=== PATIENT | male | born 1950 | race Caucasian/White ===

== ENCOUNTER 2023-11-19 11:13 | Outpatient (AMB) | payer OTHER, SELFPAY ==
--- NOTE | 2023-11-19 11:17 | MHC.OFFVIS ---
Intake Visit Reasons: BPH Intake Note: New Patient presents for initial visit for weak urinary stream Urology Medications: none Blood Thinner: apixaban PVR: 45ml's Unit Assembler Required: No Accompanied by: Self / Same As Patient Allergies topical antibiotics Allergy (Uncoded 11/19/23 11:58) Rash Medication List - Last Reconciled 11/19/23 by MATTIE Peñaloza allopurinol 300 mg PO DAILY amlodipine-benazepril 5-20 mg 1 cap PO DAILY apixaban (Eliquis) 5 mg PO BID benazepril 20 mg PO DAILY doxazosin 8 mg PO DAILY metformin ER 500 mg PO BID metoprolol succinate ER 25 mg PO DAILY pravastatin 20 mg PO DAILY HPI Comments Details: Melquiades Anand is a very pleasant 73-year-old male patient of Dr. Nelson. He has a past medical history of aortic aneurysm status post repair, hypertension, and diabetes. He presents to the office today as a new patient for weak urinary stream. In discussion with the patient today he reports noting weak urinary stream to be more consistent and persistent at night when he gets up approximately 2 times per night. He otherwise denies urinary urgency, urinary frequency, incontinence, hematuria, dysuria, foul smelling urine, flank pain, fever, and or chills. He reports having had a CT scan 1-2 years ago for follow-up of his abdominal aortic aneurysm that noted enlarged prostate and has been following up with his PCP for his annual PSAs. Discussed at length potential causes for weak urinary stream. Discussed obtaining retroperitoneal ultrasound for further assessment evaluation. In office urinalysis results reviewed with the patient today. PVR 45 mL. He does discuss having trialed Viagra and Cialis in the past for erectile dysfunction. He reports his male partner is approximately 15 years younger than him however he has since stopped taking p.r.n. ED medications as his science liaison suggested. He reports to be active in the gym approximately 3 times per week. He reports when taking Viagra he experienced back pain however he did find Cialis very helpful. He reports to be following up with his science liaison within the next month and will readdress this issue. He otherwise offers no other issues or concerns at this time. [facility] Medical History AAA (abdominal aortic aneurysm) Type 2 diabetes mellitus Hypertension Surgical History (Updated 11/19/23 @ 11:40 by Laura Wright) History of cardiac radiofrequency ablation History of AAA (abdominal aortic aneurysm) repair Review of Systems Const Reports no additional complaints Eyes Reports no additional complaints ENT Reports no additional complaints Card Reports as per HPI Resp Reports no additional complaints GI Reports no additional complaints Reports as per HPI Musc Reports no additional complaints Neuro Reports no additional complaints Psych Reports no additional complaints Endo Reports as per HPI Kt/Lymph Reports no additional complaints Aller/Immun Reports no additional complaints Physical Exam Const General: cooperative, healthy appearing, comfortable, no acute distress, well developed, alert and awake Orientation/consciousness: patient oriented x3 Limitations: no limitations HEENT Head: Yes normal to inspection, Yes normocephalic and Yes atraumatic Ears: hearing grossly normal bilaterally Eyes General: appearance normal, both eyes and all related structures Neck Neck: Yes normal visual inspection and Yes trachea midline Chest Chest palpation & inspection: normal inspection of the chest Resp Effort & Inspection: normal respiratory effort and able to speak in complete sentences Cardio Rate: regular rate GI Inspection: Yes normal to inspection General: Yes no CVA tenderness Back/Spine/Pelvis Back: no CVA tenderness Skin General skin exam: no rashes or lesions noted Neuro General: patient oriented x3 Extrem General: Yes normal to inspection Psych Appearance: grossly normal and well kempt Mental Status: mental status grossly normal Speech and movement: Normal speech and movement present and Clear speech present Affect: normal affect Attitude: cooperative Thought process: Normal thought process present Thought content: Normal thought content present Insight: Fair insight present (Psych) Judgement: Fair judgement present (Psych) Office Procedures Post Void Residual Post Residual Void Post Void Residual (PVR): 45 [id number] Void Residual by ultrasound Results AMB Urinalysis, Automated UA Leukoctes 0 Akhil/uL Last Edit by Laura Wright on 11/19/23 11:42 UA Nitrite Negative Last Edit by Laura Wright on 11/19/23 11:42 UA Urobilinogen 0.2 mg/dL Last Edit by Laura Wright on 11/19/23 11:42 UA Protein 15 mg/dL Last Edit by Laura Wright on 11/19/23 11:42 UA pH 5.5 Last Edit by Laura Wright on 11/19/23 11:42 UA Blood 0 Yadiel/uL Last Edit by Laura Wright on 11/19/23 11:42 UA Specific [place] 1.015 Last Edit by Laura Wright on 11/19/23 11:42 UA Ketone Negative Last Edit by Laura Wright on 11/19/23 11:42 UA Bilirubin 0 mg/dL Last Edit by Laura Wright on 11/19/23 11:42 UA Glucose 0 mg/dL Last Edit by Laura Wright on 11/19/23 11:42 Results Reviewed Results Reviewed: Laboratory Last Values Urine pH (Auto) 5.5 11/19/23 11:41 Specific [place] (Auto) 1.015 11/19/23 11:41 Urine Protein (Auto) 15 mg/dL 11/19/23 11:41 Glucose (UA)(Auto) 0 mg/dL 11/19/23 11:41 Urine Ketones (Auto) Negative 11/19/23 11:41 Urine Blood (Auto) 0 Yadiel/uL 11/19/23 11:41 Urine Nitrite (Auto) Negative 11/19/23 11:41 Urine Bilirubin (Auto) 0 mg/dL 11/19/23 11:41 Urine Urobilinogen (Auto) 0.2 mg/dL 11/19/23 11:41 Leukocyte Esterase (Auto) 0 Akhil/uL 11/19/23 11:41 Assessment & Plan Assessment & Plan (1) Weak urinary stream: Code(s): R39.12 - Poor urinary stream Category: Medical (2) Erectile dysfunction associated with type 2 diabetes mellitus: Code(s): E11.69 - Type 2 diabetes mellitus with other specified complication; N52.1 - Erectile dysfunction due to diseases classified elsewhere Category: Medical Plan In office urinalysis results reviewed with the patient today; as noted above. PVR 45 mL. Discussed at length potential causes for weak urinary stream. Discussed obtaining retroperitoneal ultrasound for further assessment evaluation. Will obtain PSA from PCP as patient reports he has had this completed Discussed Cialis 5 mg daily with p.r.n. dosing versus p.r.n. dosing; patient will follow-up with cardiology and will further assess at next follow-up appointment. Discussed and educated on lifestyle modifications to assist with ED. Follow-up month with imaging to be completed prior and PVR at next office visit; or sooner with any issues, concerns, and or questions. Orders: Orders US retroperitoneal comp Today R39.12 - Poor urinary stream AMB Urinalysis Automated Today Z13.9 - Encounter for screening, unspecified AMB Post Void Residual by ultrasound Today Z13.9 - Encounter for screening, unspecified Patient Instructions: The patient had an opportunity to ask questions regarding the treatment plan. All questions were answered. Physical exam, labs, and imaging were discussed and reviewed in detail. As well as risks, benefits, and discussion of treatment choices. No major barriers to understanding were identified. The patient expressed understanding and agreement with the above treatment plan. The patient was made aware they should contact our office by phone for worsening of their current condition, the appearance of new symptoms, or with any questions or concerns. Compliance is encouraged with any medications and follow up testing that is ordered. It is a privilege to be allowed the opportunity to participate in? your urological care.? Again, if you have any questions or concerns If you have any questions or concerns please do not hesitate to contact me. The office is [phone]. This note is constructed using voice recognition software. While every effort has been made to ensure accuracy slitter processed film errors may have been included. Yours sincerely, MATTIE Peñaloza Coding Level of Care Code New Pt Level 3 (96850) Diagnoses Weak urinary stream R39.12 Erectile dysfunction associated with type 2 diabetes mellitus E11.69; N52.1 CPT Codes Post Residual Void - PVR CPT Code: 91889-Xzai Void Residual by ultrasound ([id number])
== END 2023-11-19 11:59 | disposition home or self-care (01) ==
PROVIDERS: PCP Nurse Practitioner Family; Visit Provider Nurse Practitioner Family
DX: R39.12 Poor urinary stream (principal); E11.69 Type 2 diabetes mellitus with other specified complication; N52.1 Erectile dysfunction due to diseases classified elsewhere
CPT/HCPCS: 99203

== ENCOUNTER → 2023-11-19 11:13 | Outpatient (BNVA) | payer OTHER, SELFPAY | PROVIDERS: PCP Nurse Practitioner Family; Visit Provider Nurse Practitioner Family | DX: R39.12 Poor urinary stream (principal); E11.69 Type 2 diabetes mellitus with other specified complication; N52.1 Erectile dysfunction due to diseases classified elsewhere | CPT/HCPCS: 51798; 81003 ==

== ENCOUNTER 2024-01-07 09:56 | Outpatient (REF) | payer OTHER, SELFPAY ==
--- NOTE | ~2024-01-07 | US_ITS ---
EXAMINATION: US RETROPERITONEAL COMPLETE (RENAL) CLINICAL INFORMATION: Poor urinary stream. COMPARISON: None available. TECHNIQUE: Real-time imaging of the kidneys and bladder. FINDINGS: RIGHT KIDNEY: 12.6 x 7.2 x 7.9 cm (SAG x AP x TRV). The kidney is normal in size, contour, and echogenicity. Renal cortical thickness is normal. No renal calculi or hydronephrosis. 3 benign Bosniak class I renal cysts are noted, the largest measuring 8.1 cm which require no additional imaging or follow-up. No solid renal masses are seen. LEFT KIDNEY: 12.2 x 6.7 x 6.7 cm (SAG x AP x TRV). The kidney is normal in size, contour, and echogenicity. Renal cortical thickness is normal. No renal calculi or hydronephrosis. 2 benign renal cysts are present with one mid pole Bosniak class I renal cyst measuring 1.2 cm, and another mid renal Bosniak class II complex cyst with a single septation measuring 3.2 cm. Both of these require no additional imaging or follow-up. No solid renal masses are seen. BLADDER: Well distended and normal. Bilateral ureteral jets are demonstrated. Prevoid bladder volume is 566 mL. Postvoid bladder volume is 25.4 mL. ADDITIONAL FINDINGS: Nyyncpev-be-mqvteb prostate enlargement with a volume of 108 mL. US/US retroperitoneal comp IMPRESSION: Sqkghscm-nx-glweel BPH with 108 mL prostate, and 25 mL postvoid residual.
== END 2024-01-07 09:57 | disposition home or self-care (01) ==
LOC: HO.US 09:56
PROVIDERS: PCP Nurse Practitioner Family; Visit Provider Nurse Practitioner Family
DX: R39.12 Poor urinary stream (principal)
CPT/HCPCS: 76770

== ENCOUNTER 2024-01-18 08:30 | Outpatient (AMB) | payer OTHER, SELFPAY ==
--- NOTE | 2024-01-18 08:50 | A.OFFVIS_ITS ---
Intake Visit Reasons: follow up/US Intake Note: Patient presents for follow up visit on: weak urinary stream and ultrasound results Imagin01/07/24 Last PSA: 1.7 Urology Medications: none Blood Thinner: apixaban PVR: 26ml's Document Reviewer Required: No Accompanied by: Spouse Allergies topical antibiotics Allergy (Uncoded 01/18/24 09:25) Rash Medication List - Last Reconciled 01/18/24 by ZAIDA Peñaloza- allopurinol 300 mg PO DAILY amlodipine-benazepril 5-20 mg 1 cap PO DAILY apixaban (Eliquis) 5 mg PO BID benazepril 20 mg PO DAILY doxazosin 8 mg PO DAILY finasteride 5 mg PO DAILY 90 days metformin ER 500 mg PO BID metoprolol succinate ER 25 mg PO DAILY pravastatin 20 mg PO DAILY HPI Comments Details: Melquiades Anand is a very pleasant 73-year-old male patient of Dr. Nelson who was accompanied by his significant other at today's office visit. He has a past medical history of aortic aneurysm status post repair, hypertension, and diabetes. He presents to the office today for follow-up. Of note, patient was seen approximately 2 months ago as a new patient for weak urin fredy stream at which time a retroperitoneal ultrasound was ordered for further assessment evaluation. These results were reviewed with the patient today. Bilateral kidneys with no calculi or hydronephrosis. Right kidney with 3 benign Bosniak class 1 renal cyst, the largest measuring 8.1 cm, which requires no additional follow-up per radiology report. Left kidney with 2 benign Bosniak class 1 cyst measuring 1.2 cm. There is a Bosniak class 2 complex cyst with a single septation measuring 3.2 cm. Both of these requiring no additional imaging or follow-up per radiology report. The bladder is well distended and normal. Bladder jets are demonstrated. Pre void bladder volume is approximately 566 mL. Postvoid bladder volume is approximately 25 mL. Moderate to marked prostate enlargement with a volume of 108 mL. In office urinalysis results reviewed with the patient today. PVR 26 mL. He also reports issues with erectile dysfunction and having trialed Viagra and Cialis in the past however had stopped as his paper machine back tender recommended that he did. He reports to be active in the gym approximately 3 times per week. Discussed daily dosing of 5 mg of Cialis daily. He will discusses with his paper machine back tender at his upcoming appointment. Discussed trial of finasteride given enlarged prostate and patient reporting weak urinary stream. He otherwise offers no other issues or concerns at this time. PSA 10/13 1.7. [facility] Medical History AAA (abdominal aortic aneurysm) Type 2 diabetes mellitus Hypertension Surgical History History of cardiac radiofrequency ablation History of AAA (abdominal aortic aneurysm) repair Review of Systems Const Reports no additional complaints Eyes Reports no additional complaints ENT Reports no additional complaints Card Reports as per HPI Resp Reports no additional complaints GI Reports no additional complaints Reports as per HPI Musc Reports no additional complaints Neuro Reports no additional complaints Psych Reports no additional complaints Endo Reports as per HPI Kt/Lymph Reports no additional complaints Aller/Immun Reports no additional complaints Physical Exam Const General: cooperative, healthy appearing, comfortable, no acute distress, well developed, alert and awake Orientation/consciousness: patient oriented x3 Limitations: no limitations HEENT Head: Yes normal to inspection, Yes normocephalic and Yes atraumatic Ears: hearing grossly normal bilaterally Eyes General: appearance normal, both eyes and all related structures Neck Neck: Yes normal visual inspection and Yes trachea midline Chest Chest palpation & inspection: normal inspection of the chest Resp Effort & Inspection: normal respiratory effort and able to speak in complete sentences Cardio Rate: regular rate GI Inspection: Yes normal to inspection General: Yes no CVA tenderness Back/Spine/Pelvis Back: no CVA tenderness Skin General skin exam: no rashes or lesions noted Neuro General: patient oriented x3 Extrem General: Yes normal to inspection Psych Appearance: grossly normal and well kempt Mental Status: mental status grossly normal Speech and movement: Normal speech and movement present and Clear speech present Affect: normal affect Attitude: cooperative Thought process: Normal thought process present Thought content: Normal thought content present Insight: Fair insight present (Psych) Judgement: Fair judgement present (Psych) Office Procedures Post Void Residual Post Residual Void Post Void Residual (PVR): 26 [id number] Void Residual by ultrasound Results AMB Urinalysis, Automated UA Leukoctes 0 Akhil/uL Last Edit by Laura Wright on 01/18/24 09:14 UA Nitrite Negative Last Edit by Laura Wright on 01/18/24 09:14 UA Urobilinogen 0.2 mg/dL Last Edit by Laura Wright on 01/18/24 09:14 UA Protein 30 mg/dL Last Edit by Laura Wright on 01/18/24 09:14 UA pH 6.0 Last Edit by Laura Wright on 01/18/24 09:14 UA Blood 0 Yadiel/uL Last Edit by Laura Wright on 01/18/24 09:14 UA Specific Bruce 1.020 Last Edit by Laura Wright on 01/18/24 09:14 UA Ketone Negative Last Edit by Laura Wright on 01/18/24 09:14 UA Bilirubin 0 mg/dL Last Edit by Laura Wright on 01/18/24 09:14 UA Glucose 0 mg/dL Last Edit by Laura Wright on 01/18/24 09:14 Results Reviewed Results Reviewed: Laboratory Last Values Urine pH (Auto) 6.0 01/18/24 09:13 Specific Bruce (Auto) 1.020 01/18/24 09:13 Urine Protein (Auto) 30 mg/dL 01/18/24 09:13 Glucose (UA)(Auto) 0 mg/dL 01/18/24 09:13 Urine Ketones (Auto) Negative 01/18/24 09:13 Urine Blood (Auto) 0 Yadiel/uL 01/18/24 09:13 Urine Nitrite (Auto) Negative 01/18/24 09:13 Urine Bilirubin (Auto) 0 mg/dL 01/18/24 09:13 Urine Urobilinogen (Auto) 0.2 mg/dL 01/18/24 09:13 Leukocyte Esterase (Auto) 0 Akhil/uL 01/18/24 09:13 Date of Service: 01/07/24 Procedure(s): US retroperitoneal comp FINDINGS: RIGHT KIDNEY: 12.6 x 7.2 x 7.9 cm (SAG x AP x TRV). The kidney is normal in size, contour, and echogenicity. Renal cortical thickness is normal. No renal calculi or hydronephrosis. 3 benign Bosniak class I renal cysts are noted, the largest measuring 8.1 cm which require no additional imaging or follow-up. No solid renal masses are seen. LEFT KIDNEY: 12.2 x 6.7 x 6.7 cm (SAG x AP x TRV). The kidney is normal in size, contour, and echogenicity. Renal cortical thickness is normal. No renal calculi or hydronephrosis. 2 benign renal cysts are present with one mid pole Bosniak class I renal cyst measuring 1.2 cm, and another mid renal Bosniak class II complex cyst with a single septation measuring 3.2 cm. Both of these require no additional imaging or follow-up. No solid renal masses are seen. BLADDER: Well distended and normal. Bilateral ureteral jets are demonstrated. Prevoid bladder volume is 566 mL. Postvoid bladder volume is 25.4 mL. ADDITIONAL FINDINGS: Ihgszfdo-op-wazwyj prostate enlargement with a volume of 108 mL. IMPRESSION: Zbykkhme-tj-ohgjwn BPH with 108 mL prostate, and 25 mL postvoid residual. Assessment & Plan Assessment & Plan (1) Enlarged prostate: Code(s): N40.0 - Benign prostatic hyperplasia without lower urinary tract symptoms Category: Medical (2) Erectile dysfunction associated with type 2 diabetes mellitus: Code(s): E11.69 - Type 2 diabetes mellitus with other specified complication; N52.1 - Erectile dysfunction due to diseases classified elsewhere Category: Medical (3) Weak urinary stream: Code(s): R39.12 - Poor urinary stream Category: Medical Plan In office urinalysis results reviewed with the patient today; as noted above. PVR 26 mL. Recent retroperitoneal ultrasound results reviewed with the patient today. Discussed at length potential causes of weak urinary stream, ED, and enlarged prostate; this was discussed at length. Start finasteride as discussed and prescribed. Discussed low-dose Cialis; patient will discusses with his paper machine back tender. Discussed lifestyle modifications to assist with ED. Will obtain PSA in 4 months. Follow-up in 4 months with lab to be completed prior; or sooner with any issues, concerns, and or questions. Orders: Orders AMB Post Void Residual by ultrasound 01/18/24 R39.12 - Poor urinary stream AMB Urinalysis Automated 01/18/24 Z13.9 - Encounter for screening, unspecified Prostate Specific Antigen 4 Months N40.0 - Benign prostatic hyperplasia without lower urinary tract symptoms Medications: New finasteride 5 mg PO DAILY 90 days 90 tabs 1RF N13.8 - Other obstructive and reflux uropathy, N40.1 - Benign prostatic hyperplasia with lower urinary tract symptoms, R33.9 - Retention of urine, unspecified Patient Instructions: The patient had an opportunity to ask questions regarding the treatment plan. All questions were answered. Physical exam, labs, and imaging were discussed and reviewed in detail. As well as risks, benefits, and discussion of treatment choices. No major barriers to understanding were identified. The patient expressed understanding and agreement with the above treatment plan. The patient was made aware they should contact our office by phone for worsening of their current condition, the appearance of new symptoms, or with any questions or concerns. Compliance is encouraged with any medications and follow up testing that is ordered. It is a privilege to be allowed the opportunity to participate in? your urological care.? Again, if you have any questions or concerns If you have any questions or concerns please do not hesitate to contact me. The office is [phone]. This note is constructed using voice recognition software. While every effort has been made to ensure accuracy marine steamfitter errors may have been included. Yours sincerely, MATTIE Peñaloza Coding Level of Care Code Est Pt Level 4 (41409) Diagnoses Enlarged prostate N40.0 Erectile dysfunction associated with type 2 diabetes mellitus E11.69; N52.1 Weak urinary stream R39.12 CPT Codes Post Residual Void - PVR CPT Code: 79466-Xbgz Void Residual by ultrasound ([id number])
== END 2024-01-18 09:24 | disposition home or self-care (01) ==
PROVIDERS: PCP Nurse Practitioner Family; Visit Provider Nurse Practitioner Family
DX: N40.0 Benign prostatic hyperplasia without lower urinary tract symptoms (principal); E11.69 Type 2 diabetes mellitus with other specified complication; N52.1 Erectile dysfunction due to diseases classified elsewhere; R39.12 Poor urinary stream
CPT/HCPCS: 99214

== ENCOUNTER → 2024-01-18 08:30 | Outpatient (BNVA) | payer OTHER, SELFPAY | PROVIDERS: PCP Nurse Practitioner Family; Visit Provider Nurse Practitioner Family | DX: N40.1 Benign prostatic hyperplasia with lower urinary tract symptoms (principal); R39.12 Poor urinary stream; E11.69 Type 2 diabetes mellitus with other specified complication; N52.1 Erectile dysfunction due to diseases classified elsewhere | CPT/HCPCS: 51798; 81003 ==

== ENCOUNTER 2024-05-06 07:49 | Outpatient (AMB) | payer OTHER, SELFPAY ==
--- NOTE | 2024-05-06 08:30 | A.OFFVIS_ITS ---
Intake Visit Reasons: 4m/PSA(set) Intake Note: Patient presents for follow up visit on: erectile dysfunction and enlarged prostate PSA: 1.0 Urology Medications: none Blood Thinner: apixaban Mortician Investigator Required: No Accompanied by: Self / Same As Patient Allergies topical antibiotics Allergy (Uncoded 05/06/24 09:04) Rash Medication List - Last Reconciled 05/06/24 by MATTIE Peñaloza allopurinol 300 mg PO DAILY amlodipine-benazepril 5-20 mg 1 cap PO DAILY apixaban (Eliquis) 5 mg PO BID benazepril 20 mg PO DAILY doxazosin 8 mg PO DAILY finasteride 5 mg PO DAILY 90 days metformin ER 500 mg PO BID metoprolol succinate ER 25 mg PO DAILY pravastatin 20 mg PO DAILY HPI Comments Details: Melquiades Anand is a very pleasant 73-year-old male patient of Dr. Nelson. He has a past medical history of aortic aneurysm status post repair, hypertension, and diabetes. He presents to the office today for follow-up of his enlarged prostate. In discussion with the patient today he reports to be doing and feeling well. He reports compliance with finasteride 5 mg daily as prescribed. He currently denies any bothersome urinary issues or concerns. He does report nocturia 1-2 times per night however feels he is self managing. Previous workup has included a retroperitoneal ultrasound noting bilateral kidneys with no calculi or hydronephrosis. Right kidney with 3 benign Bosniak class 1 renal cyst, the largest measuring 8.1 cm, which requires no additional follow-up per radiology report. Left kidney with 2 benign Bosniak class 1 cyst measuring 1.2 cm. There is a Bosniak class 2 complex cyst with a single septation measuring 3.2 cm. Both of these requiring no additional imaging or follow-up per radiology report. The bladder is well distended and normal. Bladder jets are demonstrated. Pre void bladder volume is approximately 566 mL. Postvoid bladder volume is approximately 25 mL. Moderate to marked prostate enlargement with a volume of 108 mL. In office urinalysis results reviewed with the patient today. He also reports issues with erectile dysfunction and having trialed Viagra and Cialis in the past however had stopped as his institute scientist recommended that he did. He reports to be active in the gym approximately 3 times per week. Discussed daily dosing of 5 mg of Cialis daily. He will discusses with his institute scientist at his upcoming appointment. He otherwise offers no other issues or concerns at this time. Recent PSA results reviewed with the patient today. PSAs are as follows: PSA 10/13 1.7, 04/15 1.0 We discussed decrease in PSA and taking finasteride every other day verses daily. PENDING SALE TO [facility] Medical History AAA (abdominal aortic aneurysm) Type 2 diabetes mellitus Hypertension Surgical History History of cardiac radiofrequency ablation History of AAA (abdominal aortic aneurysm) repair Review of Systems Const Reports no additional complaints Eyes Reports no additional complaints ENT Reports no additional complaints Card Reports as per HPI Resp Reports no additional complaints GI Reports no additional complaints Reports as per HPI Musc Reports no additional complaints Neuro Reports no additional complaints Psych Reports no additional complaints Endo Reports as per HPI Kt/Lymph Reports no additional complaints Aller/Immun Reports no additional complaints Physical Exam Const General: cooperative, healthy appearing, comfortable, no acute distress, well developed, alert and awake Orientation/consciousness: patient oriented x3 Limitations: no limitations HEENT Head: Yes normal to inspection, Yes normocephalic and Yes atraumatic Ears: hearing grossly normal bilaterally Eyes General: appearance normal, both eyes and all related structures Neck Neck: Yes normal visual inspection and Yes trachea midline Chest Chest palpation & inspection: normal inspection of the chest Resp Effort & Inspection: normal respiratory effort and able to speak in complete sen tences Cardio Rate: regular rate GI Inspection: Yes normal to inspection General: Yes no CVA tenderness Back/Spine/Pelvis Back: no CVA tenderness Skin General skin exam: no rashes or lesions noted Neuro General: patient oriented x3 Extrem General: Yes normal to inspection Psych Appearance: grossly normal and well kempt Mental Status: mental status grossly normal Speech and movement: Normal speech and movement present and Clear speech present Affect: normal affect Attitude: cooperative Thought process: Normal thought process present Thought content: Normal thought content present Insight: Fair insight present (Psych) Judgement: Fair judgement present (Psych) Results AMB Urinalysis, Automated UA Leukoctes 0 Akhil/uL Last Edit by Ibrahima Sutton LPN on 05/06/24 08:39 UA Nitrite Negative Last Edit by Ibrahima Sutton LPN on 05/06/24 08:39 UA Urobilinogen 0.2 mg/dL Last Edit by Ibrahima Sutton LPN on 05/06/24 08:39 UA Protein 30 mg/dL Last Edit by Ibrahima Sutton LPN on 05/06/24 08:39 UA pH 5.5 Last Edit by Ibrahima Sutton LPN on 05/06/24 08:39 UA Blood 0 Yadiel/uL Last Edit by Ibrahima Sutton LPN on 05/06/24 08:39 UA Specific [place] 1.020 Last Edit by Ibrahima Sutton LPN on 05/06/24 08:39 UA Ketone Negative Last Edit by Ibrahima Sutton LPN on 05/06/24 08:39 UA Bilirubin 0 mg/dL Last Edit by Ibrahima Sutton LPN on 05/06/24 08:39 UA Glucose 0 mg/dL Last Edit by Ibrahima Sutton LPN on 05/06/24 08:39 Results Reviewed Results Reviewed: Laboratory Last Values Urine pH (Auto) 5.5 05/06/24 08:38 Specific [place] (Auto) 1.020 05/06/24 08:38 Urine Protein (Auto) 30 mg/dL 05/06/24 08:38 Glucose (UA)(Auto) 0 mg/dL 05/06/24 08:38 Urine Ketones (Auto) Negative 05/06/24 08:38 Urine Blood (Auto) 0 Yadiel/uL 05/06/24 08:38 Urine Nitrite (Auto) Negative 05/06/24 08:38 Urine Bilirubin (Auto) 0 mg/dL 05/06/24 08:38 Urine Urobilinogen (Auto) 0.2 mg/dL 05/06/24 08:38 Leukocyte Esterase (Auto) 0 Akhil/uL 05/06/24 08:38 Assessment & Plan Assessment & Plan (1) Enlarged prostate: Code(s): N40.0 - Benign prostatic hyperplasia without lower urinary tract symptoms Category: Medical (2) Weak urinary stream: Code(s): R39.12 - Poor urinary stream Category: Medical (3) Erectile dysfunction associated with type 2 diabetes mellitus: Code(s): E11.69 - Type 2 diabetes mellitus with other specified complication; N52.1 - Erectile dysfunction due to diseases classified elsewhere Category: Medical Plan In office urinalysis results reviewed with the patient today; as noted above. PVR 26 mL. Recent PSA results reviewed with the patient today; as noted above. Patient reports significant improvement in weak urinary stream since initiation of finasteride. Discussed taking finasteride every other day verses daily as PSA has decreased. Discuss trial of low-dose Cialis he will discuss this with his institute scientist per his request. Discussed lifestyle modifications to assist with ED as well as overall health and well-being. Will obtain PSA in 6 months. Discussed importance of limiting fluids 2-3 hours prior to bed to decrease episodes of nocturia. Follow-up in 6 months with PSA and PVR to be completed prior or sooner with any issues, concerns, and or questions. Orders: Orders AMB Urinalysis Automated Today E11.69 - Type 2 diabetes mellitus with other specified complication, N40.0 - Benign prostatic hyperplasia without lower urinary tract symptoms, N52.1 - Erectile dysfunction due to diseases classified elsewhere, R39.12 - Poor urinary stream Prostate Specific Antigen 6 Months N40.0 - Benign prostatic hyperplasia without lower urinary tract symptoms Patient Instructions: The patient had an opportunity to ask questions regarding the treatment plan. All questions were answered. Physical exam, labs, and imaging were discussed and reviewed in detail. As well as risks, benefits, and discussion of treatment choices. No major barriers to understanding were identified. The patient expressed understanding and agreement with the above treatment plan. The patient was made aware they should contact our office by phone for worsening of their current condition, the appearance of new symptoms, or with any qu estions or concerns. Compliance is encouraged with any medications and follow up testing that is ordered. It is a privilege to be allowed the opportunity to participate in? your urological care.? Again, if you have any questions or concerns If you have any questions or concerns please do not hesitate to contact me. The office is [phone]. This note is constructed using voice recognition software. While every effort has been made to ensure accuracy internet programmer errors may have been included. Yours sincerely, Myriam Phan, BRASS MOLDER-BC Coding Level of Care Code Est Pt Level 3 (03044) Complex EM visit Add On G2211 Diagnoses Enlarged prostate N40.0 Weak urinary stream R39.12 Erectile dysfunction associated with type 2 diabetes mellitus E11.69; N52.1
== END 2024-05-06 09:09 | disposition home or self-care (01) ==
PROVIDERS: PCP Nurse Practitioner Family; Visit Provider Nurse Practitioner Family
DX: N40.0 Benign prostatic hyperplasia without lower urinary tract symptoms (principal); R39.12 Poor urinary stream; E11.69 Type 2 diabetes mellitus with other specified complication; N52.1 Erectile dysfunction due to diseases classified elsewhere
CPT/HCPCS: 99213

== ENCOUNTER → 2024-05-06 07:49 | Outpatient (BNVA) | payer OTHER, SELFPAY | PROVIDERS: PCP Nurse Practitioner Family; Visit Provider Nurse Practitioner Family | DX: N40.1 Benign prostatic hyperplasia with lower urinary tract symptoms (principal); R39.12 Poor urinary stream; E11.69 Type 2 diabetes mellitus with other specified complication; N52.1 Erectile dysfunction due to diseases classified elsewhere | CPT/HCPCS: 81003 ==

== ENCOUNTER 2024-11-03 07:35 | Outpatient (AMB) | payer OTHER, SELFPAY ==
--- OUTSIDE RECORDS SUMMARY | 2024-11-03 07:38 | XMS_ITS | Clinical Summary ---
Author Organization [facility] Address [address] [place] [address] Care Team Providers Care Dermatology Sales Representative Name Role Phone Carrie Nelson CAR VARNISHER Primary Care Provider Allergies Active Allergy Reactions Criticality Noted Date Comments Atorvastatin 05/07/2024 Bacitracin Hives 05/07/2024 Medications Medication Sig Dispensed Refills Start Date End Date Status allopurinol (ZYLOPRIM) 300 MG tablet Take 1 tablet (300 mg total) by mouth daily. 0 Active amLODIPine (NORVASC) tablet 5 mg Take 1 tablet (5 mg total) by mouth daily. 0 Active doxazosin (CARDURA) 8 MG tablet Take 1 tablet (8 mg total) by mouth every night at bedtime. 0 Active doxycycline (ADOXA) 50 MG tablet Take 1 tablet (50 mg total) by mouth every other day. 0 Active apixaban (ELIQUIS) 5 MG TABS tablet Take by mouth every 12 (twelve) hours. 0 Active LORazepam (ATIVAN) 1 MG tablet Take 1 tablet (1 mg total) by mouth every 6 (six) hours as needed. 0 Active metFORMIN (GLUCOPHAGE) tablet 500 mg Take 1 tablet (500 mg total) by mouth 2 (two) times a day with meals. 0 Active metoprolol succinate (TOPROL-XL) 24 hr tablet 25 mg Take by mouth daily. 0 Active BACILLUS COAGULANS-INULIN PO Take by mouth. 0 A ctive senna (SENOKOT) 8.6 MG tablet Take 1 tablet by mouth daily. 0 Active Active Problems No known active problems Family History Medical History Relation Name Comments Anemia Mother Relation Name Status Comments Mother Social History Tobacco Use Types Packs/Day Years Used Date Smoking Tobacco: Former Cigarettes 2 37 Smokeless Tobacco: Never Tobacco Cessation:Counseling Given: Not Answered Alcohol Use Standard Drinks/Week Comments Yes 0 (1 standard drink = 0.6 oz pur e alcohol) sociall Sex and Gender Information Value Date Recorded Sex Assigned at Male 04/09/2024 4:43 PM EDT Gender Identity Not on file Sexual Orientation Not on file Job Start Date Occupation Industry Not on file Not on file Not on file Last Filed Vital Signs Vital Sign Reading Time Taken Comments Blood Pressure 130/73 05/19/2024 9:40 AM EDT Pulse 78 05/19/2024 9:40 AM EDT Temperature 36.7 ??C (98 ??F) 05/19/2024 9:40 AM EDT Respiratory Rate - - Oxygen Saturation 100% 05/19/2024 9:40 AM EDT Inhaled Oxygen Concentration - - Weight 90.3 kg (199 lb) 05/19/2024 9:40 AM EDT Height 177.8 cm (5' 10 ) 05/07/2024 10:04 AM EDT Body Mass Index 28.55 05/07/2024 10:04 AM EDT Plan of Treatment Health Maintenance Due Date Last Done Comments Hepatitis C Screening 1948 Depression Screening 1960 Preventative Health Evaluation 1966 DTap / Tdap / Td (1 - Tdap) 1967 Fall Risk Assessment 2013 Pneumococcal Vaccine Completed 12/22/2015, 10/14/2014, 03/28/2011 Shingrix-Zoster Vaccine Completed 07/05/20 20, 03/31/2020, 09/14/2014 RSV Adult > 60+ Yrs or Completed 05/08/2023 COVID-19 Vaccine Completed 04/07/2024, , 04/15/2021, Additional history exists Influenza Vaccine Completed 04/07/2024, , 05/03/2022, Additional history exists Hepatitis B Vaccines Aged Out No long er eligible based on patient's age to complete this topic RSV Ped < 20 months Aged Out No longe r eligible based on patient's age to complete this topic Care Teams Dermatology Sales Representative Relationship Specialty Start Date End Date Carrie Nelson NP [address] [facility] [place] [phone] PCP - General Family Medicine 05/07/24
--- OUTSIDE RECORDS SUMMARY | 2024-11-03 07:38 | XMS_ITS | Encounter Summary ---
Author Organization [facility] Address [address] [place] [address] Care Team Providers Care Hat Model Name Role Phone Carrie Nelson SUPERVISOR SALVAGE Primary Care Provider Encounter Details Date Type Department Care Team ([facility] st Contact Info) Description 05/19/2024 9:18 AM EDT Hospital Encounter TH HISTORIC ENCOUNTERS EASTERN CONVERSION ONLY Nelida, Lora Turner MD [address] [place] [address] Social History Tobacco Use Types Packs/Day Years [...] than 15 years ago, has more than 45-wowl-cctr smoking history Drink socially He lives with [...] documented in this encounter Plan of Treatment Not on file documented as of this encounter Procedures Procedure [...] on filedocumented in this encounter Care Teams Hat Model Relationship Specialty Start Date End Date Carrie Nelson NP [address] [place] [address] PCP - General 05/07/24 documented as of this encounter
--- OUTSIDE RECORDS SUMMARY | 2024-11-03 07:39 | XMS_ITS | Continuity of Care Document ---
Author Organization [facility] Address [address] [place] [address]- Care Team Providers Care Ekg/Ecg Technician Name Role Phone Leslie LANCASTER, Carrie Primary Care Physician Encounter [facility] [place] Date(s[place] 09/30/24 - 10/30/24 [facility] [address], [place] [address] Attending Physician: Magdiel Venegas Admitting Physician: Magdiel Venegas Referring Physician: Magdiel Venegas Encounter Type: Triage Allergies, Adverse Reactions, Alerts Substance Criticality Severity Reaction Reaction Severity Status bacitracin hives Active atorvastatin leg cramping Acti ve Immunizations Given and Recorded Vaccine Date Status Refusal Reason influenza virus vaccine, inactivated 04/07/24 Zurdo rded influenza virus vaccine, inactivated 04/09/23 Zurdo rded influenza virus vaccine, inactivated 05/03/22 Zurdo rded influenza virus vaccine, inactivated 04/15/21 Zurdo rded influenza virus vaccine, inactivated 03/31/20 Zurdo rded influenza virus vaccine, inactivated 1 05/14/19 Gi belkis SARS-CoV-2(COVID-19)mRNA-LNP vac([id number]) 04/07/24 Recorded SARS-CoV-2(COVID-19)mRNA-LNP vac([id number]) 05/08/23 Recorded RSV vaccine preF3, recombinant 05/08/23 Recorded [id number] bivalent booster vax 05/17/22 Recorded SARS-CoV-2 (COVID-19) mRNA-1273 vaccine 01/08/22 R ecorded SARS-CoV-2 (COVID-19) mRNA BNT-162b2 vac 04/15/21 Recorded SARS-CoV-2 (COVID-19) mRNA BNT-162b2 vac 10/02/20 Recorded SARS-CoV-2 (COVID-19) mRNA BNT-162b2 vac 09/08/20 Recorded zoster vaccine, inactivated 07/05/20 Recorded zoster vaccine, inactivated 03/31/20 Recorded zoster vaccine, inactivated 09/14/14 Recorded tetanus/diphtheria/pertussis, acel(Tdap) 03/04/20 Given Influenza Virus Vaccine (oldterm) 05/03/18 Recorde d pneumococcal 23-valent vaccine 12/22/15 Recorded pneumococcal 23-valent vaccine 2 03/28/11 Given pneumococcal 13-valent vaccine 10/14/14 Recorded 1Result Comment: [facility] [id number] 2Early/Late Reason: Nursing Judgment Medications allopurinol 300 mg oral tablet 1, tablet, By Mouth, Daily, # 90 tablet, Refills 1, Tot. Refills 1, Maintenance, 09/02/24 12:08:00 PM EST, Route to Pharmacy Electronically, [facility]/pharmacy #[id number], 187.96, cm, 08/13/24 12:35:00 EST, Height, 89, kg, 03/07/24 7:07:00 EDT, Dry Weight Start Date: 09/02/24 Status: Ordered Quantity: 90.0 Unit: tablet Repeat number: 2 aspirin 81 mg oral delayed release tablet 81 mg, 1, tablet, By Mouth, Daily, # 90 tablet, Refills 0, Tot. Refills 0, Maintenance, 08/13/24 3:18:00 PM EST, Route to Pharmacy Electronically, [facility]/pharmacy #[id number], Partial fill upon patient requestif the prescription is for a schedule II opioid drug., 187.96, cm, 08/13/24 12:35:00 EST, Height, 89, kg, 03/07/24 7:07:00 EDT, Dry Weight Start Date: 08/13/24 Status: Ordered Quantity: 90.0 Unit: tablet Repeat number: 1 doxycycline hyclate 50 mg oral capsule 1 capsule = 50 mg, By Mouth, Every 48 hours, 0 Refills, Maintenance, 10/22/14 1:09:26 PM EDT Start Date: 10/22/14 Status: Ordered Repeat number: 1 finasteride 5 mg oral tablet 1 tablet = 5 mg, By Mouth, Every other day, 0 Refills, Maintenance, 08/07/24 10:29:00 AM EST, Partial fill upon patient request if the prescription is for a schedule II opioid drug. Start Date: 08/07/24 Status: Ordered Repeat number: 1 LORazepam 1 mg oral tablet 1 tablet, By Mouth, 2 times a day, PRN NEEDED FOR ANXIETY, # 60 tablet, 0 Refills, Maintenance, 02/26/24 10:15:00 AM EDT, [facility]/pharmacy #[id number], 174.5, cm, 09/21/23 8:27:00 EST, Height, 89.9, kg, 03/29/22 7:08:00 EDT, Dry Weight Start Date: 02/26/24 Status: Ordered Quantity: 60.0 Unit: tablet Repeat number: 1 losartan 100 mg oral tablet 0 Refills, Maintenance, 08/07/24 10:28:00 AM EST, Partial fill upon patient request if the prescription is for a schedule II opioid drug. Start Date: 08/07/24 Status: Ordered Repeat number: 1 MetFORMIN (Eqv-Glucophage XR) 500 mg oral tablet, extended release 2 tablet, By Mouth, Daily before dinner, # 180 tablet, 1 Refills, Maintenance, 09/02/24 12:08:00 PM EST, [facility]/pharmacy #[id number], 187.96, cm, 08/13/24 12:35:00 EST, Height, 89, kg, 03/07/24 7:07:00 EDT, Dry Weight Start Date: 09/02/24 Status: Ordered Quantity: 180.0 Unit: tablet Repeat number: 2 Metoprolol Succinate ER 25 mg oral tablet, extended release TAKE 1 TABLET BY MOUTH EVERY DAY Start Date: 03/29/23 Status: Ordered Repeat number: 1 ONE TOUCH VERIO TEST STRIP ONE TOUCH VERIO TEST STRIP, See Instructions, # 100 Unknown, 1 Refills, Maintenance, USE TO TEST ONCE DAILY, 11/16/23 4:26:00 PM EDT, 174.5, cm, 09/21/23 8:27:00 EST, Height, 89.9, kg, 03/29/22 7:08:00 EDT, Dry Weight Start Date: 11/16/23 Status: Ordered Quantity: 100.0 Unit: Unknown Repeat number: 1 ONE TOUCH VERIO TEST STRIP ONE TOUCH VERIO TEST STRIP, See Instructions, # 100 Unknown, 1 Refills, Maintenance, USE TO TEST ONCE DAILY, 10/29/24 8:50:00 AM EDT, 187.96, cm, 09/30/24 11:16:00 EDT, Height, 91, kg, 09/04/24 11:46:00 EST, Dry Weight Start Date: 10/29/24 Status: Ordered Quantity: 100.0 Unit: Unknown Repeat number: 1 ONE TOUCH VERIO TEST STRIP ONE TOUCH VERIO TEST STRIP, See Instructions, # 100 Unknown, 3 Refills, USE TO TEST ONCE DAILY, 180, cm, 03/31/20 8:38:00 EDT, Height, 90.7, kg, 03/04/20 21:21:00 EDT, Dry Weight Start Date: 09/17/20 Status: Ordered Quantity: 100.0 Unit: Unknown Repeat number: 1 ONE TOUCH VERIO TEST STRIP ONE TOUCH VERIO TEST STRIP, See Instructions, # 100 Unknown, 3 Refills, USE TO TEST ONCE DAILY, 180, cm, 07/26/21 9:52:00 EST, Height, 91.6, kg, 07/15/21 15:12:00 EST, Dry Weight Start Date: 11/17/21 Status: Ordered Quantity: 100.0 Unit: Unknown Repeat number: 1 ONE TOUCH VERIO TEST STRIP ONE TOUCH VERIO TEST STRIP, See Instructions, # 100 Unknown, 0 Refills, Maintenance, USE TO TEST ONCE DAILY, 02/08/23 8:27:00 AM EDT, 178, cm, 12/11/22 9:04:00 EDT, Height, 89.9, kg, 03/29/22 7:08:00 EDT, Dry Weight Start Date: 02/08/23 Status: Ordered Quantity: 100.0 Unit: Unknown Repeat number: 1 ONE TOUCH VERIO TEST STRIP ONE TOUCH VERIO TEST STRIP, See Instructions, # 100 Unknown, 1 Refills, Maintenance, USE TO TEST ONCE DAILY, 05/10/23 12:05:00 PM EDT, 178, cm, 04/10/23 11:10:00 EDT, Height, 89.9, kg, 03/29/22 7:08:00 EDT, Dry Weight Start Date: 05/10/23 Status: Ordered Quantity: 100.0 Unit: Unknown Repeat number: 1 ONE TOUCH VERIO TEST STRIP ONE TOUCH VERIO TEST STRIP, See Instructions, # 100 Unknown, 1 Refills, Maintenance, USE TO TEST ONCE DAILY, 04/08/24 2:32:00 PM EDT, 179, cm, 03/26/24 7:47:00 EDT, Height, 89, kg, 03/07/24 7:07:00 EDT, Dry Weight Start Date: 04/08/24 Status: Ordered Quantity: 100.0 Unit: Unknown Repeat number: 1 Plavix 75 mg oral tablet 75 mg, 1, tablet, By Mouth, Daily, # 90 tablet, Refills 0, Tot. Refills 0, Maintenance, 08/13/24 3:18:00 PM EST, Route to Pharmacy Electronically, [facility]/pharmacy #[id number], Partial fill upon patient requestif the prescription is for a schedule II opioid drug., 187.96, cm, 08/13/24 12:35:00 EST, Height, 89, kg, 03/07/24 7:07:00 EDT, Dry Weight Start Date: 08/13/24 Status: Ordered Quantity: 90.0 Unit: tablet Repeat number: 1 pravastatin 20 mg oral tablet 1, tablet, By Mouth, Daily, # 90 tablet, Refills 1, Maintenance, 06/24/24 4:20:00 PM EST, Route to Pharmacy Electronically, [id number], 179, cm, 06/06/24 12:23:00 EST, Height, 89, kg, 03/07/24 7:07:00 EDT, Dry Weight Start Date: 06/24/24 Status: Ordered Quantity: 90.0 Unit: tablet Repeat number: 1 Vitamin B12 0 Refills, Maintenance, 09/26/22 9:39:00 AM EST, Partial fill upon patient request if the prescription is for a schedule II opioid drug. Start Date: 09/26/22 Status: Ordered Repeat number: 1 Problem List Condition Confirmation Course Effective Dates Status H ealth Status Informant Abdominal aortic aneurysm without rupture Confirmed Active Anxiety Confirmed Active Atrial fibrillation Confirmed Active Benign essential hypertension Confirmed Active Kidney disease, chronic, stage I (normal EGFR) Confirmed Active Diverticulosis of colon Confirmed Active Gout Confirmed Active Hypogonadism Confirmed Active Impotence of organic origin Confirmed Active Claudication of calf muscles Confirmed Active Microalbuminuria Confirmed Active Hyperlipidemia Confirmed Active 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 Sex Sex Representation Male (finding) Patient Care team information Care Team Personnel Name: Carrie Nelson NP Position: [facility] PCO Associate Professional Member Role: PCP Address: [address] [place] [address] Telecom: Name: Rojelio Nayak RN Position: [facility] RN Member Role: Primary Care Nurse Name: Erica Chester RN Position: [facility] RN Member Role: Primary Care Nurse Care Team Related Persons Name: ANA CAMPBELL Name: ANA ATKINS Name: SEEMA JENKINS Insurance Providers Guarantor name: [facility] Health Plan Information #: 1 Payer: [facility] Member Number: NA Policy Number: NA Group Number: NA
--- OUTSIDE RECORDS SUMMARY | 2024-11-03 07:39 | XMS_ITS | Encounter Summary ---
Author Organization [facility] Address [address] [place] [address] Care Team Providers Care Business Excellence Leader Name Role Phone Carrie Nelson WELDING EQUIPMENT REPAIRER SUPERVISOR Primary Care Provider Encounter Details Date Type Department Care Team ([facility] st Contact Info) Description 05/07/2024 9:47 AM EDT Hospital Encounter [facility] HISTORIC ENCOUNTERS [facility] CONVERSION ONLY Nelida, Lora Turner MD [address] [place] [address] Social History Tobacco Use Types Packs/Day Years [...] than 15 years ago, has more than [id number] smoking history Drink socially He lives with [...] on file documented as of this encounter Visit Diagnoses Not on filedocumented in this encounter Care Teams Business Excellence Leader Relationship Specialty Start Date End Date Carrie Nelson NP [address] [place] [id number] PCP - General 05/07/24 documented as of this encounter
--- OUTSIDE RECORDS SUMMARY | 2024-11-03 07:39 | XMS_ITS | Clinical Summary ---
Author Organization [address] [place] [address] Address [address] [place] [address] Phone Care Team Providers Care Tube Machine Operator Name Role Phone TomyCarrie robertson ONCOLOGY NURSE NAVIGATOR Primary Care Provider Allergies Active Allergy Reactions Criticality Noted Date Comments Atorvastatin 08/06/2021 Bacitracin 08/06/2021 Morphine Sulfate 08/09/2021 In medication needs to be administered slowly or pt has vomiting and elevated BP Medications metoprolol succinate (TOPROL-XL) 25 mg 24 hr tablet Take 1 tablet (25 mg total) by mouth 1 (one) time each day. 4 Active allopurinoL (ZYLOPRIM) 300 mg tablet Take 300 mg by mouth daily. Active doxazosin (CARDURA) 8 mg tablet Take 1 Tablet by mouth at bedtime. Active doxycycline (VIBRAMYCIN) 50 mg capsule Take 50 mg by mouth every 48 hours. Active LORazepam (ATIVAN) 1 mg tablet Take 1 mg by mouth 2 times daily as needed. Active metFORMIN (GLUCOPHAGE) 500 mg tablet Take 1 tablet (500 mg total) by mouth 2 (two) times a day. Active pravastatin (PRAVACHOL) 20 mg tablet Take 20 mg by mouth daily. Active aspirin 81 mg EC tablet Take 1 tablet (81 mg total) by mouth 1 (one) time each day. 30 each 11 5 026 Active clopidogreL (PLAVIX) 75 mg tablet Take 1 tablet (75 mg total) by mouth 1 (one) time each day. 30 each 11 5 026 Active losartan (Cozaar) 50 mg tablet Take 1 tablet (50 mg total) by mouth 2 (two) times a day. 180 each 2 5 025 Active amLODIPine (Norvasc) 5 mg tablet Take 1 tablet (5 mg total) by mouth 2 (two) times a day. 180 each 2 5 025 Active amLODIPine (NORVASC) 10 mg tablet Take 1 tablet (10 mg total) by mouth 1 (one) time each day. 30 each 11 4 025 Discontinued losartan (Cozaar) 100 mg tablet Take 1 tablet (100 mg total) by mouth 1 (one) time each day. 30 each 11 4 025 Discontinued(Th erapy completed) Active Problems Problem Noted Date Diagnosed Date SOB (shortness of breath) 08/18/2024 Presence of Watchman left atrial appendage closu re device 08/18/2024 Overview (08/18/2024): August 13, 2024 #27 mm watchman LAAO device placed Mixed hyperlipidemia 06/25/2024 Abnormal stress ECG with treadmill 08/08/2023 Coronary artery disease due to lipid rich plaque 08/08/2023 Palpitations 08/08/2023 SOB (shortness of breath) 04/09/2023 Diastolic heart failure with preserved ejection fraction ([facility] V24, CMS/HCC V28) 12/30/2021 Pulmonary hypertension ([facility] V24, CMS/HCC V28 ) 12/30/2021 Other fatigue 11/02/2021 Snoring 11/02/2021 Aneurysm of abdominal aorta ([facility] V24) 2021 Chronic kidney disease, stage 1, normal or incre ased GFR 08/22/2021 Diabetes mellitus with renal complications (CMS/[facility] V24, CMS/HCC V28) 08/22/2021 DMII (diabetes mellitus, type 2) (CMS/HCC V24, C [place]/HCC V28) 08/22/2021 Chest pain 08/09/2021 Overview (05/09/2024): Last Assessment & Plan: Patient admitted to [facility] with chest pain ruled out for an NE. No dynamic EKG changes other than atrial fibrillation. Patient states he is having some exertional dyspnea but no further discomfort in the chest which was described as a bandlike nature. Respecters for coronary disease are family history of tobacco abuse hyperlipidemia and hypertension. Patient be scheduled for stress echocardiogram PAF (paroxysmal atrial fibri llation) ([facility] V24, CMS/[facility] V28) 08/06/2021 Overview (05/09/2024): Last Assessment & Plan: Patient has rate controlled atrial fibrillation with a CHADS2 score of 3 on appropriate anticoagulation. I told him he has 3 options 1 is to remain in A. fib second is to be cardioverted the third is an ablation. Patient does complain about some shortness of breath and being uncomfortable at night even with rate controlled A. fib. Therefore I told him that he has 2 options now cardioversion or ablation. I explained to the patient that reason literature indicates that returning to sinus rhythm is soon as possible is probably the best and option for him and that can be accomplished by either method I went over the risks and benefits of both. He like to can be considered for ablation we will schedule him as an outpatient in the meantime we will complete the work-up for his chest pain HLD (hyperlipidemia) 08/06/2021 Hypertension 08/06/2021 Overview (05/09/2024): Last Assessment & Plan: Pressure is up today but he was seen by his primary care physician on 26 July his pressure was 130/80 at this visit I am not can change medications Encounters Date Type Department Care Team Description 10/23/2024 8:40 AM EDT Office Visit [facility] [address] [place] [address] Alice Santizo PA Presence of Watchman left atrial appendage closure device (Primary Dx); Coronary artery disease due to lipid rich plaque; PAF (paroxysmal atrial fibrillation) ([facility] V24, [facility] V28); SOB (shortness of breath) 10/17/2024 1:26 PM EDT Anesthesia Event [facility] [address] [place] [phone] Giancarlo Ivy MD 10/17/2024 12:25 PM EDT - 10/17/2024 11:59 PM EDT Hospital Encounter [facility] [address] [place] [phone] Berhane Thompson MD Dickman, Christy L, CRNA Gomes, Sheldon B, MD Presence of Watchman left atrial appendage closure device (Primary Dx); PAF (paroxysmal atrial fibrillation) (CMS/HCC V24, CMS/HCC V28) Discharge Disposition: Home or Self Care 10/06/2024 Telephone [facility] [address] [place] [address] Tashia Cerna MD Procedure (COLTON Post Watchman 3.24.25) 08/21/2024 9:30 AM EST Clinical Support [facility] [address] [place] [address] 08/18/2024 12:15 PM EST - 08/18/2024 11:59 PM EST Hospital Encounter [facility] Xray [address] [place] [phone] Atrial fibrillation, unspecified type (CMS/HCC V24, CMS/HCC V28); SOB (shortness of breath); Hypertension, unspecified type; PAF (paroxysmal atrial fibrillation) (CMS/HCC V24, CMS/HCC V28); Palpitations Discharge Disposition: Home or Self Care 08/18/2024 11:50 AM EST Lab Draw Station - [address] [facility] [address] [place] [phone] Coronary artery disease due to lipid rich plaque; Atrial fibrillation, unspecified type (CMS/HCC V24, CMS/HCC V28); SOB (shortness of breath); Hypertension, unspecified type; PAF (paroxysmal atrial fibrillation) (CMS/HCC V24, CMS/HCC V28); Palpitations 08/18/2024 11:10 AM EST Office Visit [facility] [address] [place] [address] Alice Santizo PA Atrial fibrillation, unspecified type ([facility] V24, [facility] V28) (Primary Dx); SOB (shortness of breath); Hypertension, unspecified type; PAF (paroxysmal atrial fibrillation) ([facility] V24, [facility] V28); Palpitations; Presence of Watchman left atrial appendage closure device from Last 3 Months Immunizations Name Administration Dates Next Due Pfizer SARS-CoV-2 COVID-19, mRNA, LNP-S, preservative free 04/15/2021,10/02/2020,09/08/2020 Surgical History Surgery Date Site/Laterality Comments OTHER SURGICAL HISTORY PROCEDURE: HISTORY OTHER; COMMENT: Enterolysis, laparoscopy, freeing of intestinal adhesion OTHER SURGICAL HISTORY PROCEDURE: OH RPR THORACOABDOMINAL AORTIC ANEURYS W/WO BYPASS; COMMENT: Reapir of AAA repair for dilation or occlusion OTHER SURGICAL HISTORY PROCEDURE: [place] BYP OTH/THN VEIN FEMORAL-FEMORAL EYE SURGERY PROCEDURE: HISTORICAL EYE SURGERY MULTIPLE TOOTH EXTRACTIONS PROCEDURE: HISTORICAL DENTAL EXTRACTION; COMMENT: H/O Dental Srugery OTHER SURGICAL HISTORY 03/25/2011 PROCEDURE: LAPAROSCOPY,ENTEROLYSIS OTHER SURGICAL HISTORY PROCEDURE:AAA Stent and Repair Medical History Medical History Date Comments Aneurysm of abdominal aorta ([facility] V24) DX:Aneurysm of abdominal aorta ([facility]) Anxiety DX:Anxiety DMII (diabetes mellitus, typ e 2) ([facility] V24, [facility] V28) DX:DMII (diabetes mellitus, type 2) ([facility]) Renal disease DX:Renal disease Gout DX:Gout Hypogonadism in male DX:Hypogona dism in male Impotence of organic origin DX:I mpotence of organic origin Microalbuminuria DX:Microalbumin uria Intestinal obstruction ([facility] V24, [facility] V28) DX:Intestinal obstruction (H CC) Diabetes mellitus with renal complications ([facility] V24, [facility] V28) DX:Diabetes mellitus with r enal complications (HCC) Chronic kidney disease, stag e 1, normal or increased GFR DX:Chronic kidney disease, s tage 1, normal or increased GFR Kidney disease, chronic, sta ge I (normal EGFR) DX:Kidney disease, chronic, stage I (normal EGFR) Heart palpitations DX:Heart palp itations Diabetes mellitus (CMS/HCC V 24, CMS/HCC V28) DX:Diabetes mellitus (HCC) Hypertension DX:Hypertension Emphysema lung (CMS/HCC V24, CMS/HCC V28) DX:Emphysema lung (HCC) Seborrhea DX:Seborrhea Anemia DX:Anemia Family History Medical History Relation Name Comments Coronary artery disease Brother Other: Atrial Fibrillation Brother Hypertension Daughter Leukemia Daughter Other: Hyperlipidemia Daughter Diabetes Father Mellitus, Type II Hypertension Father Anemia Mother Coronary artery disease Mother Hypertension Sister Leukemia Sister Other: Hyperlipidemia Sister Relation Name Status Comments Brother Daughter Father Mother Sister Social History Tobacco Use Types Packs/Day Years Used Date Smoking Tobacco: Former Cigarettes Q uit: 07/23/1998 Passive Smoke Exposure: Past Smokeless Tobacco: Never Tobacco Cessation:Counseling Given: Not Answered Alcohol Use Standard Drinks/Week Comments Yes 0 (1 standard drink = 0.6 oz pur e alcohol) Sex and Gender Information Value Date Recorded Sex Assigned at Male 07/04/2024 1:51 PM EST Legal Sex Male 5:39 AM EST Gender Identity Male 07/04/2024 1:51 PM EST Sexual Orientation Lesbian or Flowers 07/04/2024 1: 51 PM EST Obstetrics History Last Filed Vital Signs Vital Sign Reading Time Taken Comments Blood Pressure 120/76 10/23/2024 8:27 AM EDT Pulse 81 10/23/2024 8:27 AM EDT Temperature 36.5 ??C (97.7 ??F) 10/17/2024 1:06 PM ED T Respiratory Rate 17 10/17/2024 2:00 PM EDT Oxygen Saturation 98% 10/23/2024 8:27 AM EDT Inhaled Oxygen Concentration - - Weight 90.7 kg (200 lb) 10/23/2024 8:27 AM EDT Height 177.8 cm (5' 10 ) 10/23/2024 8:27 AM EDT Body Mass Index 28.7 10/23/2024 8:27 AM EDT Plan of Treatment Health Maintenance Due Date Last Done Comments Diabetes: Annual Foot Exam 1960 Diabetes: Annual Retina Eye Exam 1960 Depression Screening 2022 Falls Risk Assessment 2022 Hepatitis C Screening 2022 Social Influencers of Health Screening 2022 Diabetes: Annual Urine Albumin-Creatinine Ratio (uACR) 07/06/2022 Diabetes: Blood Sugar Control Test (HGBA1C) 07/06/2022 COVID-19 Vaccine (8 - Pfizer risk season) 2024 04/07/2024, 05/08/2023, 05/17/2022, Additional history exists Diabetes: Annual GFR (Glomerular Filtration Rate) 10/10/2025 10/10/2024, 08/18/2024 Hypertension/CHF/CAD Annual BMP Blood Test 10/10/2025 10/10/2024, 08/18/2024 Cholesterol Screening (Lipid Panel) 12/20/2028 12/21/2023, 12/21/2023 DTaP,Tdap,and Td Vaccines (2 - Td or Tdap) 03/04/2030 03/04/2020 Pneumococcal Vaccine: 50+ Years Completed 12/22/2015, 10/14/2014, 03/28/2011 Zoster Vaccines Completed 07/05/2020, 03/2020, 09/14/2014 RSV Immunization Adult Patients Completed 05/08/2023 Influenza Vaccine Completed 04/07/2024, , 05/03/2022, Additional history exists HIB Vaccines Aged Out No longer eligi ble based on patient's age to complete this topic HPV Vaccines Aged Out No longer eligi ble based on patient's age to complete this topic Hepatitis A Vaccines Aged Out No long er eligible based on patient's age to complete this topic Hepatitis B Vaccines Aged Out No long er eligible based on patient's age to complete this topic IPV Vaccines Aged Out No longer eligi ble based on patient's age to complete this topic MMR Vaccines Aged Out No longer eligi ble based on patient's age to complete this topic Meningococcal ACWY Vaccine Aged Out N o longer eligible based on patient's age to complete this topic Meningococcal B Vaccine Aged Out No l onger eligible based on patient's age to complete this topic RSV Immunization Patients Under 20 months Aged Out No longer eligible based on patient's age to complete this topic Varicella Vaccines Aged Out No longer eligible based on patient's age to complete this topic Procedures Procedure Name Priority Date/Time Associated Diagnosis Comments COLTON COMPLETE Routine 10/17/2024 1:51 PM EDT PAF (paroxysmal atrial fibrillation) (CMS/HCC V24, CMS/HCC V28) GENERAL Routine 10/17/2024 1:42 PM EDT PAF (paroxysmal atrial fibrillation) (CMS/HCC V24, CMS/HCC V28) Presence of Watchman left atrial appendage closure device CBC WITH AUTO DIFFERENTIAL Routine 10/10/2024 11:06 AM EDT PAF (paroxysmal atrial fibrillation) (CMS/HCC V24, CMS/HCC V28) PROTHROMBIN TIME WITH INR Routine 10/10/2024 11:06 AM EDT PAF (paroxysmal atrial fibrillation) (CMS/HCC V24, CMS/HCC V28) BASIC METABOLIC PANEL Routine 10/10/2024 11:06 AM EDT PAF (paroxysmal atrial fibrillation) (CMS/HCC V24, CMS/HCC V28) CBC AND DIFFERENTIAL Routine 10/10/2024 11:06 AM EDT PAF (paroxysmal atrial fibrillation) (CMS/HCC V24, CMS/HCC V28) ECG 12-LEAD Routine 08/18/2024 3:29 PM EST Atrial fibrillation, unspecified type (CMS/HCC V24, CMS/HCC V28) XR CHEST 2 VIEWS Routine 08/18/2024 12:2 7 PM EST Atrial fibrillation, unspecified type (CMS/HCC V24, CMS/HCC V28) SOB (shortness of breath) Hypertension, unspecified type PAF (paroxysmal atrial fibrillation) (CMS/HCC V24, CMS/HCC V28) Palpitations B-TYPE NATRIURETIC PEPTIDE Routine 08/18/2024 11:53 AM EST Atrial fibrillation, unspecified type (CMS/HCC V24, CMS/HCC V28) SOB (shortness of breath) Hypertension, unspecified type PAF (paroxysmal atrial fibrillation) (CMS/HCC V24, CMS/HCC V28) Palpitations COMPLETE BLOOD COUNT Routine 08/18/2024 11:53 AM EST Atrial fibrillation, unspecified type (CMS/HCC V24, CMS/HCC V28) SOB (shortness of breath) Hypertension, unspecified type PAF (paroxysmal atrial fibrillation) (CMS/HCC V24, CMS/HCC V28) Palpitations BASIC METABOLIC PANEL Routine 08/18/2024 11:53 AM EST Coronary artery disease due to lipid rich plaque LIPID PANEL Routine 12/21/2023 from Last 3 Months or Most Recently Relevant to Health Maintenance Results * COLTON COMPLETE (10/17/2024 1:51 PM EDT) BSA 2.12 m2 CV PACS Aortic Sinus Valsalva 3.8 cm CV PACS Ascending Aorta 3.5 cm CV PACS Ascending Aorta Index 1.67 cm/m2 CV PACS Anatomical Region Laterality Modality X-Ray Angiograph y Narrative 10/17/2024 4:25 PM EDT ?There is a Watchman closure device. It completely occludes the left atrial appendage. ?? There is no thrombus in the left atrial appendage. There is no mass in the left atrial appendage. ?Left ventricle cavity size is normal. Left ventricular systolic function is in the normal range with an ejection fraction of 60-65%. ?Right ventricular systolic function is normal. ?No hemodynamically significant valve disease. Left Ventricle Left ventricle cavity size is normal. Systolic function is normal with an ejection fraction of 60-65%. Right Ventricle Systolic function is normal. Left Atrium There is a Watchman closure device. It completely occludes the left atrial appendage. There is no thrombus in the left atrial appendage. There is no mass in the left atrial appendage. Right Atrium There is no thrombus in the right atrial cavity. There is no mass in the right atrial cavity. Mitral Valve The leaflets are mildly thickened. There is mild regurgitation. There is no evidence of mitral valve stenosis. Tricuspid Valve The leaflets exhibit probably normal excursion. There is mild regurgitation. There is no evidence of tricuspid valve stenosis. Aortic Valve The aortic valve is trileaflet. The leaflets are mildly thickened. There is trace regurgitation. There is no evidence of aortic valve stenosis. Ascending Aorta The aorta appears normal in size. Pericardium There is no pericardial effusion. Study Details Overall the study quality was adequate. The probe was inserted by the sampler ovens. There was no probe insertion difficulty. Moderate sedation was administered by anesthesia. The patient had no complications. Estimated blood loss: no blood loss. No specimens were collected. Tashia Cerna MD CV ECHO PROCEDURES Final R esult * General (10/17/2024 1:42 PM EDT) Berhane Rhodes MD - 10/17/2024 1:42 PM EDT Berhane Thompson MD ? 10/17/2024 ??1:44 PM General Date/Time: 10/17/2024 1:42 PM Performed by: Berhane Thompson MD Authorized by: Berhane Thompson MD ?? Consent: ??Consent obtained: ??Written ??Consent given by: ??Patient ??Risks, benefits, and alternatives were discussed: yes ?? [place] protocol: ??Patient identity confirmed: ??Verbally with patient Indications: ??Indications: ??Afib watchman Sedation: ??Sedation type: ??Deep Procedure specific details: ?? After informed consent time out was performed. Sedation per anesthesia. After adequate sedation the COLTON was passed by me without difficulty. Images obtained. Watchman seen well seated no thrombus without nereyda-device leak. Full COLTON report to follow. Post-procedure details: ??Procedure completion: ??Tolerated well, no immediate complications Berhane Thompson MD IN CLINIC/BEDSIDE ORDERAB LES Final Result * (ABNORMAL) CBC auto differential (10/10/2024 11:06 AM EDT) WBC 4.7(L) 4.8 - 10.8 K/mcL LAB HEMETOLOGY METHOD 10/10/2024 12:47 PM EDT [facility] RBC 4.00(L) 4.50 - 5.50 M/mcL LAB HEMETOLOGY METHOD 10/10/2024 12:47 PM EDT [facility] Hemoglobin 11.7(L) 13.5 - 17.5 g/dL LAB HEMETOLOGY METHOD [facility] Hematocrit 36.7(L) 42.0 - 54.0 % LAB HEMETOLOGY METHOD 10/10/2024 12:47 PM [facility] MCV 91.1 79.0 - 98.0 FL LAB HEMETOLOGY METHOD 10/10/2024 12:47 PM [facility] MCH 29.0 27.0 - 32.0 pcg LAB HEMETOLOGY METHOD 10/10/2024 12:47 PM [facility] MCHC 31.9(L) 32.0 - 37.0 g/dL LAB HEMETOLOGY METHOD 10/10/2024 12:47 PM [facility] RDW 15.7(H) 11.0 - 15.0 % LAB HEMETOLOGY METHOD 10/10/2024 12:47 PM [facility] Platelets 198 130 - 400 K/mcL LAB HEMETOLOGY METHOD 10/10/2024 12:47 PM [facility] MPV 10.1 7.0 - 11.0 FL LAB HEMETOLOGY METHOD 10/10/2024 12:47 PM [facility] NRBC 0.0 <1.0 % LAB HEMETOLOGY METHOD 10/10/2024 12:47 PM [facility] NRBC Absolute 0.00 <0.10 K/mcL LAB HEMETOLOGY METHOD 10/10/2024 12:47 PM [facility] Neutrophils Relative 44.8 % LAB HEMETOLOGY METHOD 10/10/2024 12:47 PM [facility] Lymphocytes Relative 40.6 % LAB HEMETOLOGY METHOD 10/10/2024 12:47 PM [facility] Monocytes Relative 8.8 % LAB HEMETOLOGY METHOD 10/10/2024 12:47 PM EDT [facility] Eosinophils Relative 4.5 % LAB HEMETOLOGY METHOD 10/10/2024 12:47 PM EDT [facility] Basophils Relative 0.4 % LAB HEMETOLOGY METHOD 10/10/2024 12:47 PM EDT [facility] Immature Granulocytes Relative 0.9 % LAB HEMETOLOGY METHOD 10/10/2024 12:47 PM EDT [facility] Neutrophils Absolute 2.08 1.50 - 7.00 K/mcL LAB HEMETOLOGY METHOD 10/10/2024 12:47 PM EDT [facility] Lymphocytes Absolute 1.89 1.00 - 5.00 K/mcL LAB HEMETOLOGY METHOD 10/10/2024 12:47 PM EDT [facility] Monocytes Absolute 0.41 0.20 - 1.00 K/mcL LAB HEMETOLOGY METHOD 10/10/2024 12:47 PM EDT [facility] Eosinophils Absolute 0.21 0.00 - 0.50 K/mcL LAB HEMETOLOGY METHOD 10/10/2024 12:47 PM EDT [facility] Basophils Absolute 0.02 0.00 - 0.20 K/mcL LAB HEMETOLOGY METHOD 10/10/2024 12:47 PM EDT [facility] Immature Granulocytes Absolute 0.04(H) 0.00 - 0.03 K/mcL LAB HEMETOLOGY METHOD 10/10/2024 12:47 PM EDT [facility] Blood Venous blood specimen / Unknown Venipuncture / Unknown 10/10/2024 11:06 AM EDT 10/10/2024 12:37 PM EDT us Tashia Cerna MD LAB BLOOD ORDERABLES Final Result [facility] [address] [place] [address], [place] [phone] * Prothrombin time with INR (10/10/2024 11:06 AM EDT) [facility] Protime 11.5 10.6 - 13.9 sec LAB COAGULATION METHOD 10/10/2024 1:02 PM EDT [facility] INR 0.9 LAB COAGULATION METHOD 10/10/2024 1:02 PM EDT [facility] Blood Venous blood specimen / Unknown Venipuncture / Unknown 10/10/2024 11:06 AM EDT 10/10/2024 12:37 PM EDT Tashia Cerna MD LAB BLOOD ORDERABLES Final Result [facility] [address] [place] [address], [place] [phone] * (ABNORMAL) Basic metabolic panel (10/10/2024 11:06 AM EDT) Only the most recent of2 resultswithin the time period is included. [facility] Sodium 135 133 - 145 mmol/L LAB CHEMISTRY METHOD 10/10/2024 2:35 PM [facility] Potassium 4.5 3.5 - 5.5 mmol/L LAB CHEMISTRY METHOD 10/10/2024 2:35 PM [facility] Chloride 103 96 - 110 mmol/L LAB CHEMISTRY METHOD 10/10/2024 2:35 PM [facility] CO2 25 21 - 32 mmol/L LAB CHEMISTRY METHOD 10/10/2024 2:35 PM [facility] Anion Gap 7 3 - 11 LAB CHEMISTRY METHOD 10/10/2024 2:35 PM [facility] Glucose 125(H) 70 - 100 mg/dL LAB CHEMISTRY METHOD 10/10/2024 2:35 PM [facility] BUN 17 5 - 25 mg/dL LAB CHEMISTRY METHOD 10/10/2024 2:35 PM EDT [facility] Creatinine 0.92 0.70 - 1.30 mg/dL LAB CHEMISTRY METHOD 10/10/2024 2:35 PM EDT [facility] eGFR 86 >=60 mL/min/1. 73m2 LAB CHEMISTRY METHOD 10/10/2024 2:35 PM EDT [facility] Comment:Calculation based on the??Chronic Kidney Disease Epidemiology Collaboration (CKD-EPI) equation refit??without adjustment for race. BUN/Creatinine Ratio 18.5 LAB CHEMISTRY METHOD 10/10/2024 2:35 PM EDT [facility] Calcium 9.1 8.5 - 10.5 mg/dL LAB CHEMISTRY METHOD 10/10/2024 2:35 PM EDT [facility] Blood Venous blood specimen / Unknown Venipuncture / Unknown 10/10/2024 11:06 AM EDT 10/10/2024 12:36 PM EDT Tashia Cerna MD LAB BLOOD ORDERABLES Final Result Performing Organization Address City/[facility]/ZIP Co de Phone Number [facility] [address] [place] [address], * ECG 12 lead (08/18/2024 3:29 PM EST) Alice COPELAND ECG ORDERABLES Final Result Performing Organization Address City/[facility]/ZIP Co de Phone Number [facility] * XR Chest 2 Views (08/18/2024 12:27 PM EST) Anatomical Region Laterality Modality Body Radiographic Mary ging 08/18/2024 12:3 5 PM EST Impressions 08/18/2024 12:36 PM EST Impression: No active pulmonary process identified. Horace COPELAND ([id number]) -------- FINAL REPORT -------- Dictated By: Vee Garcia Dictated Date: 08/18/2024 12:35 ET Assigned Physician: Vee Garcia Reviewed and Electronically Signed By: Vee Garcia Signed Date: 08/18/2024 12:36 ET Workstation ID: [id number] Transcribed By: Self Edit Transcribed Date: 08/18/2024 12:35 ET Narrative 08/18/2024 12:36 PM EST History: Productive cough for 2 days. Former smoker. Comparison: 08/16/18 Findings: PA and lateral views. The cardiac silhouette is normal in size. Hilar contours and pulmonary vascularity are within normal limits. The lungs are clear. The costophrenic angles are sharp. Left atrial appendage flow restrictor device noted and an aortic stent graft is partially imaged in the upper abdomen. Flowing hyperostosis is seen along the anterior aspect of the spine. Procedure Note Vee Garcia MD - 08/18/2024 History: Productive cough for 2 days. Former smoker. Comparison: 08/16/18 Findings: PA and lateral views. The cardiac silhouette is normal in size. Hilarcontours and pulmonary vascularity are within normal limits. The lungs areclear. The costophrenic angles are sharp. Left atrial appendage flow restrictor device noted and an aortic stentgraft is partially imaged in the upper abdomen. Flowing hyperostosis is seen along the anterior aspect of the spine. IMPRESSION: Impression: No active pulmonary process identified. [employer]elerad MIN ([id number]) -------- FINAL REPORT -------- Dictated By: Vee Garcia Dictated Date: 08/18/2024 12:35 ET Assigned Physician: Vee Garcia Reviewed and Electronically Signed By: Vee Garcia Signed Date: 08/18/2024 12:36 ET Workstation ID: [id number] Transcribed By: Self Edit Transcribed Date: 08/18/2024 12:35 ET [facility] IMG XR PROCEDURES Final Result * (ABNORMAL) Complete blood count (08/18/2024 11:53 AM EST) WBC 6.4 4.8 - 10.8 K/mcL LAB HEMETOLOGY METHOD 08/18/2024 2:37 PM [facility] RBC 4.00(L) 4.50 - 5.50 M/mcL LAB HEMETOLOGY METHOD 08/18/2024 2:37 PM [facility] Hemoglobin 11.2(L) 13.5 - 17.5 g/dL LAB HEMETOLOGY METHOD 08/18/2024 2:37 PM [facility] Hematocrit 34.8(L) 42.0 - 54.0 % LAB HEMETOLOGY METHOD 08/18/2024 2:37 PM [facility] MCV 88.1 79.0 - 98.0 FL LAB HEMETOLOGY METHOD 08/18/2024 2:37 PM [facility] MCH 28.4 27.0 - 32.0 pcg LAB HEMETOLOGY METHOD 08/18/2024 2:37 PM [facility] MCHC 32.2 32.0 - 37.0 g/dL LAB HEMETOLOGY METHOD 08/18/2024 2:37 PM [facility] RDW 14.2 11.0 - 15.0 % LAB HEMETOLOGY METHOD 08/18/2024 2:37 PM [facility] Platelets 173 130 - 400 K/mcL LAB HEMETOLOGY METHOD 08/18/2024 2:37 PM [facility] MPV 10.6 7.0 - 11.0 FL LAB HEMETOLOGY METHOD 08/18/2024 2:37 PM [facility] NRBC 0.0 <1.0 % LAB HEMETOLOGY METHOD 08/18/2024 2:37 PM [facility] NRBC Absolute 0.00 <0.10 K/mcL LAB HEMETOLOGY METHOD 08/18/2024 2:37 PM [facility] Blood Venous blood specimen / Unknown Venipuncture / Unknown 08/18/2024 11:53 AM EST 08/18/2024 12:33 PM EST [facility] LAB BLOOD ORDERABLES Final Resul t Performing Organization Address City/[facility]/ZIP Co de Phone Number [facility] [address] [place] [address], [place] [phone] * B-type natriuretic peptide (08/18/2024 11:53 AM EST) Pathologist [facility] BNP 68 <=100 pcg/mL LAB CHEMISTRY METHOD 08/18/2024 3:38 PM EST [facility] Blood Venous blood specimen / Unknown Venipuncture / Unknown 08/18/2024 11:53 AM EST 08/18/2024 12:33 PM EST Alice [facility] LAB BLOOD ORDERABLES Final Resul t Performing Organization Address City/[facility]/ZIP Co de Phone Number [facility] [address] [place] [address], [place] [phone] * Lipid panel (12/21/2023) [facility] LDL/HDL Ratio 3 0 - 4 Triglycerides 123 0 - 150 mg/dL Cholesterol 131 0 - 200 mg/dL HDL 58 >=40 mg/dL LDL Cholesterol 58 0 - 100 mg/dL Blood Venous blood specimen / Unknown Historical Provider LAB BLOOD ORDERABLES Edita l Result from Last 3 Months or Most Recently Relevant to Health Maintenance Insurance [employer] Care Teams Tube Machine Operator Relationship Specialty Start Date End Date Carrie Nelson NP [address] [place] [id number] PCP - General 05/07/24
--- NOTE | 2024-11-03 07:46 | A.OFFVIS_ITS ---
Intake Visit Reasons: 6m PSA(set) Intake Note: Patient presents for follow up visit on: erectile dysfunction and follow up on psa lab results PSA: 1.2 Urology Medications: Finasteride Blood Thinner: apixaban Guest Service Representative Required: No Accompanied by: Self / Same As Patient Allergies topical antibiotics Allergy (Uncoded 11/03/24 08:17) Rash Medication List - Last Reconciled 11/03/24 by MATTIE Peñaloza allopurinol 300 mg PO DAILY amlodipine 5 mg PO BID clopidogrel 75 mg PO DAILY doxazosin 8 mg PO DAILY finasteride 5 mg PO DAILY 90 days losartan 50 mg PO BID metformin ER 500 mg PO BID metoprolol succinate ER 25 mg PO DAILY pravastatin 20 mg PO DAILY HPI Comments Details: Melquiades Anand is a very pleasant 74-year-old male patient of Dr. Nelson who was accompanied by his significant other at today's office visit. He has a past medical history of aortic aneurysm status post repair, hypertension, and diabetes. He presents to the office today for follow-up of his enlarged prostate. In discussion with the patient today he reports to be doing and feel ing well. He reports compliance with finasteride 5 mg as prescribed. He currently denies any bothersome urinary issues or concerns. He does report nocturia 1-2 times per night however feels he is self managing. Previous workup has included a retroperitoneal ultrasound 01/13 noting bilateral kidneys with no calculi or hydronephrosis. Right kidney with 3 benign Bosniak class 1 renal cyst, the largest measuring 8.1 cm, which requires no additional follow-up per radiology report. Left kidney with 2 benign Bosniak class 1 cyst measuring 1.2 cm. There is a Bosniak class 2 complex cyst with a single septation measuring 3.2 cm. Both of these requiring no additional imaging or follow-up per radiology report. The bladder is well distended and normal. Bladder jets are demonstrated. Pre void bladder volume is approximately 566 mL. Postvoid bladder volume is approximately 25 mL. Moderate to marked prostate enlargement with a volume of 108 mL. In office urinalysis results reviewed with the patient today. He otherwise offers no other issues or concerns at this time. Recent PSA results reviewed with the patient today. PSAs are as follows: PSA 10/13 1.7, 04/15 1.0, 10/14 1.2 Plan The patient will continue finasteride every other day for BPH management, as his urinary symptoms are well-controlled. PSA levels will be monitored for significant fluctuations. Finasteride?s side effects have been discussed, with no current issues noted. Patient was informed and verbally consented to the use of an ambient scribe for clinic note documentation during this visit. Discussion Notes During the visit, we discussed the ongoing management of Benign Prostatic Hyperplasia with finasteride, noting the stability of the patient's urinary symptoms and PSA levels. The potential for PSA fluctuations was addressed, with assurance provided that significant changes would prompt reassessment. I informed the patient of possible side effects, such as retrograde ejaculation and decreased libido, although he currently experiences none. The plan includes continued monitoring and a six-month follow-up, maintaining open communication through the patient portal for any interim concerns or changes. [facility] Medical History AAA (abdominal aortic aneurysm) Type 2 diabetes mellitus Hypertension Surgical History History of cardiac radiofrequency ablation History of AAA (abdominal aortic aneurysm) repair Review of Systems Const Reports no additional complaints Eyes Reports no additional complaints ENT Reports no additional complaints Card Reports as per HPI Resp Reports no additional complaints GI Reports no additional complaints Reports as per HPI Musc Reports no additional complaints Neuro Reports no additional complaints Psych Reports no additional complaints Endo Reports as per HPI Kt/Lymph Reports no additional complaints Aller/Immun Reports no additional complaints Physical Exam Const General: cooperative, healthy appearing, comfortable, no acute distress, well developed, alert and awake Nutritional Appearance: overweight Orientation/consciousness: patient oriented x3 Limitations: no limitations HEENT Head: Yes normal to inspection, Yes normocephalic and Yes atraumatic Ears: hearing grossly normal bilaterally Eyes General: appearance normal, both eyes and all related structures Neck Neck: Yes normal visual inspection and Yes trachea midline Chest Chest palpation & inspection: normal inspection of the chest Resp Effort & Inspection: normal respiratory effort and able to speak in complete sentences Cardio Rate: regular rate GI Inspection: Yes normal to inspection General: Yes no CVA tenderness Back/Spine/Pelvis Back: no CVA tenderness Skin General skin exam: no rashes or lesions noted Neuro General: patient oriented x3 Extrem General: Yes normal to inspection Psych Appearance: grossly normal and well kempt Mental Status: mental status grossly normal Speech and movement: Normal speech and movement present and Clear speech present Affect: normal affect Attitude: cooperative Thought process: Normal thought process present Thought content: Normal thought content present Insight: Fair insight present (Psych) Judgement: Fair judgement present (Psych) Results AMB Urinalysis, Automated UA Leukoctes 0 Akhil/uL Last Edit by Laura Rubiokilo on 11/03/24 08:03 UA Nitrite Last Edit by [employer] Joannekilo on 11/03/24 08:03 UA Urobilinogen 0.2 mg/dL Last Edit by [employer] Joannekilo on 11/03/24 08:03 UA Protein 15 mg/dL Last Edit by CallYour[employer] Rubiokilo on 11/03/24 08:03 UA pH 15 Last Edit by [employer] Joannekilo on 11/03/24 08:03 UA Blood 0 Yadiel/uL Last Edit by [employer] Joannekilo on 11/03/24 08:03 UA Specific [place] 1.015 Last Edit by [employer] Joannekilo on 11/03/24 08:03 UA Ketone Last Edit by [employer] JoannePlango on 11/03/24 08:03 UA Bilirubin 0 mg/dL Last Edit by [employer] Joannekilo on 11/03/24 08:03 UA Glucose 0 mg/dL Last Edit by Askem on 11/03/24 08:03 Results Reviewed Results Reviewed: Laboratory Last Values Urine pH (Auto) 15 11/03/24 07:51 Specific [place] (Auto) 1.015 11/03/24 07:51 Urine Protein (Auto) 15 mg/dL 11/03/24 07:51 Glucose (UA)(Auto) 0 mg/dL 11/03/24 07:51 Urine Blood (Auto) 0 Yadiel/uL 11/03/24 07:51 Urine Bilirubin (Auto) 0 mg/dL 11/03/24 07:51 Urine Urobilinogen (Auto) 0.2 mg/dL 11/03/24 07:51 Leukocyte Esterase (Auto) 0 Akhil/uL 11/03/24 07:51 Assessment & Plan Assessment & Plan (1) Enlarged prostate: Code(s): N40.0 - Benign prostatic hyperplasia without lower urinary tract symptoms Category: Medical Plan In office urinalysis results reviewed with the patient today; as noted above. Recent PSA results reviewed with the patient today; as noted above. Patient currently denies any bothersome urinary issues or concerns. He reports be happy with current voiding parameters. Continue finasteride as prescribed; every other day. Will continue with surveillance monitoring. Will obtain PSA in 6 months. Follow-up in 6 months with PSA and PVR; or sooner with any issues, concerns, and or questions. Orders: Orders AMB Urinalysis Automated Today Z13.9 - Encounter for screening, unspecified Prostate Specific Antigen 6 Months N40.0 - Benign prostatic hyperplasia without lower urinary tract symptoms Patient Instructions: The patient had an opportunity to ask questions regarding the treatment plan. All questions were answered. Physical exam, labs, and imaging were discussed and reviewed in detail. As well as risks, benefits, and discussion of treatment choices. No major barriers to understanding were identified. The patient expressed understanding and agreement with the above treatment plan. The patient was made aware they should contact our office by phone for worsening of their current condition, the appearance of new symptoms, or with any questio ns or concerns. Compliance is encouraged with any medications and follow up testing that is ordered. It is a privilege to be allowed the opportunity to participate in? your urological care.? Again, if you have any questions or concerns If you have any questions or concerns please do not hesitate to contact me. The office is [phone]. This note is constructed using voice recognition software. While every effort has been made to ensure accuracy supervisor steel division errors may have been included. Yours sincerely, MATTIE Peñaloza Coding Level of Care Code Est Pt Level 3 (98078) Complex EM visit Add On G2211 Diagnoses Enlarged prostate N40.0
== END 2024-11-03 08:21 | disposition home or self-care (01) ==
LOC: HO.HUSH 07:37
PROVIDERS: PCP Nurse Practitioner Family; Visit Provider Nurse Practitioner Family
DX: Z13.9 Encounter for screening, unspecified (principal); N40.0 Benign prostatic hyperplasia without lower urinary tract symptoms
CPT/HCPCS: 99213

== ENCOUNTER → 2024-11-03 07:35 | Outpatient (BNVA) | payer OTHER, SELFPAY | PROVIDERS: PCP Nurse Practitioner Family; Visit Provider Nurse Practitioner Family | DX: N40.0 Benign prostatic hyperplasia without lower urinary tract symptoms (principal) | CPT/HCPCS: 81003 ==

== ENCOUNTER 2025-05-06 07:42 | Outpatient (AMB) | payer OTHER, SELFPAY ==
--- OUTSIDE RECORDS SUMMARY | 2024-05-07 09:47 | XMS_ITS | Encounter Summary ---
Author Organization [facility] Address [address] [place] [address] Care Team Providers Care Oil Pumper Name Role Phone Carrie Nelson SCHOOL LABORATORY TECHNICIAN Primary Care Provider Encounter Details Date Type Department Care Team (Late st Contact Info) Description 05/07/2024 9:47 AM EDT Hospital Encounter TH HISTORIC ENCOUNTERS EASTERN CONVERSION ONLY Lora Krause MD [address] [place] [address] Social History Tobacco Use Types Packs/Day Years Used Date Smoking Tobacco: Former Cigarettes Q uit: 07/23/1998 Passive Smoke Exposure: Past Smokeless Tobacco: Never Alcohol Use Standard Drinks/Week Comments Yes 0 (1 standard drink = 0.6 oz pur e alcohol) Sex and Gender Information Value Date Recorded Sex Assigned at Male 07/04/2024 1:51 PM EST Legal Sex Male 5:39 AM EST Gender Identity Male 07/04/2024 1:51 PM EST Sexual Orientation Lesbian or Flowers 07/04/2024 1: 51 PM EST documented as of this encounter Last Filed Vital Signs Vital Sign Reading Time Taken Comments Blood Pressure 140/87 05/07/2024 10:04 AM EDT Sitting Left arm Pulse 76 05/07/2024 10:04 AM EDT Temperature - - Respiratory Rate - - Oxygen Saturation - - Inhaled Oxygen Concentration - - Weight 91.4 kg (201 lb 6.4 oz) 05/07/2024 10:04 AM EDT Height 177.8 cm (5' 10 ) 05/07/2024 10: 04 AM EDT Body Mass Index 28.9 05/07/2024 10:04 AM EDT documented in this encounter Progress Notes * Lora Krause MD - 05/07/2024 10:00 AM EDT Dear Carrie, Thank you very much for referring this patient for consultation. HPI: Patient is a 73-year-old man, who found to have mild anemia on and off for last few years, patient had a procedure for AAA, at that time his hemoglobin was down to 12 g. Patient denies any obvious blood loss, patient denies any prior history of hematological disorder but he has strong family history of anemia/leukemia etc. ROS: GENERAL: No anorexia, intentional weight loss, fever, night sweats or any significant fatigue HEENT no headache or visual symptom NECK: No lumps, goiter, pain or significant neck swelling RESPIRATORY: No cough or shortness of breath CARDIOVASCULAR: No chest pain. GI: No abdominal discomfort, blood in stools or black stools MUSCULOSKELETAL: No new unusual aches and pain HEMATOLOGY/LYMPHOLOGY No prolonged bleeding, but easy bruising because of blood thinner sometime Other Systems review is non contributory PAST MEDICAL HISTORY: Anxiety/depression Hypertension Type 2 diabetes Atrial fibrillation Dyslipidemia Chronic insufficiency PAST SURGICAL HISTORY: Abdominal aortic aneurysm repair SOCIAL HISTORY: Quit smoking more than 15 years ago, has more than [id number] smoking history Drink socially He lives with his FAMILY HISTORY: Mother had anemia he does not know the details MEDICATIONS: Current Outpatient Medications: ??? allopurinol (ZYLOPRIM) 300 MG tablet, Take 1 tablet (300 mg total) by mouth daily., Disp: , Rfl: ??? amLODIPine (NORVASC) tablet 5 mg, Take 1 tablet (5 mg total) by mouth daily., Disp: , Rfl: ??? apixaban (ELIQUIS) 5 MG TABS tablet, Take by mouth every 12 (twelve) hours., Disp: , Rfl: ??? BACILLUS COAGULANS-INULIN PO, Take by mouth., Disp: , Rfl: ??? doxazosin (CARDURA) 8 MG tablet, Take 1 tablet (8 mg total) by mouth every night at bedtime., Disp: , Rfl: ??? doxycycline (ADOXA) 50 MG tablet, Take 1 tablet (50 mg total) by mouth every other day., Disp: , Rfl: ??? LORazepam (ATIVAN) 1 MG tablet, Take 1 tablet (1 mg total) by mouth every 6 (six) hours as needed., Disp: , Rfl: ??? metFORMIN (GLUCOPHAGE) tablet 500 mg, Take 1 tablet (500 mg total) by mouth 2 (two) times a daywith meals., Disp: , Rfl: ??? metoprolol succinate (TOPROL-XL) 24 hr tablet 25 mg, Take by mouth daily., Disp: , Rfl: ??? senna (SENOKOT) 8.6 MG tablet, Take 1 tablet by mouth daily., Disp: , Rfl: You are allergic to the following Date Reviewed: 05/07/2024 Allergen Reactions Atorvastatin Not Noted Bacitrquynh Win PHYSICAL EXAM: Vital signs stable ECOG 0-1 APPEARANCE: Alert and oriented in no acute distress EYES: nonicteric sclera pink conjunctiva NECK: no significant palpable lymph node ORAL CAVITY: No erythema or exudates NECK: Neck supple, no significant adenopathy, HEART: S1-S2 irregularly irregular LUNG: clear to auscultation bilaterally LYMPH NODES: No palpable superficial adenopathy ABDOMEN: Obese, distended, soft, nontender and no organomegaly appreciated. EXTREMITIES: No edema erythema tenderness LABS: WBC 4.7, hemoglobin 13.2 g, hematocrit 39%, MCV 87.2 and platelet count 154 BUN 19 creatinine 0.[address](R) 1. Mild anemia ANEMIA Patient is a very pleasant 73-year-old man, who has mild persistent chronic normocytic anemia of unclear etiology, possible differential diagnoses include 1. Normal variant 2. Anemia of chronic disease 3. Anemia due to occult blood loss or blood loss during his procedure 4. Unlikely refractory anemia due to myelodysplasia I explained patient and his in detail about potential causes of his very mild anemia, I gave him reassurance regarding his good prognosis, I told him I will review peripheral smear as well as dosome anemia workup and see him back in next 2 to 3 weeks for any further intervention PLAN: Labs today, return to office in 2 to 3 weeks for any further intervention Lora Krause MD cc: Guzman Randolph MD documented in this encounter Plan of Treatment Upcoming Encounters Date Type Department Care Team (Late st Contact Info) Description 05/13/2025 8:45 AM EDT Office Visit [facility] Hematology Oncology [address] [place] [address] Lora Krause MD [address] [place] [address] 08/03/2025 7:00 AM EST Ancillary Procedure [facility] [address] [place] [phone] documented as of this encounter Visit Diagnoses Not on filedocumented in this encounter Care Teams Oil Pumper Relationship Specialty Start Date End Date Carrie Nelson NP [address] [place] [address] PCP - General 05/07/24 documented as of this encounter
--- OUTSIDE RECORDS SUMMARY | 2024-05-19 09:18 | XMS_ITS | Encounter Summary ---
Author Organization [facility] Address [address] [place] [address] Care Team Providers Care Administrative Assistant Receptionist Name Role Phone Carrie Nelson [facility] Primary Care Provider Encounter Details Date Type Department Care Team (Late st Contact Info) Description 05/19/2024 9:18 AM EDT Hospital Encounter TH HISTORIC ENCOUNTERS EASTERN CONVERSION ONLY Lora Krause MD [address] [place] [address] Social History Tobacco Use Types Packs/Day Years [...] Sign Reading Time Taken Comments Blood Pressure 130/73 05/19/2024 9:40 AM EDT Sitting Left arm Pulse 78 05/19/2024 9:40 AM EDT Temperature - - Respiratory Rate - - Oxygen Saturation - - Inhaled Oxygen Concentration - - Weight 90.3 kg (199 lb) 05/19/2024 9:40 AM EDT Height 177.8 cm (5' 10 ) 05/07/2024 10: 04 AM EDT Body Mass Index 28.55 05/07/2024 10:04 AM EDT documented in this encounter Progress Notes * Lora Krause MD - 05/19/2024 9:45 AM EDT CHIEF COMPLAINT: Follow-up IDENTIFIER:Melquiades Claudio is a 73 y.o. male. HPI: 73-year-old man who has very mild anemia on and off, patient also has been on blood thinner, patient recent anemia workup is unremarkable except very minimal iron deficiency ROS: Patient has been feeling fair, continue denies any obvious blood loss, no significant change from previous visit of 05/07/2024 PAST MEDICAL HISTORY: Anxiety/depression Hypertension Type 2 diabetes Atrial fibrillation Dyslipidemia Chronic insufficiency ?? PAST SURGICAL HISTORY: Abdominal aortic aneurysm repair ?? SOCIAL HISTORY: Quit smoking more than 15 years ago, has more than 24-hcyd-hfbo smoking history Drink socially He lives with his ?? FAMILY HISTORY: Mother had anemia he does not know the details Current Outpatient Medications: ??? allopurinol (ZYLOPRIM) 300 [...] are allergic to the following Date Reviewed: 05/19/2024 Allergen Reactions Atorvastatin Not Noted Bacitracin Hives PHYSICAL EXAM: BP 130/73 (BP Location: Left arm) Pulse 78 Temp 98 ??F (36.7 ??C) (Temporal) Wt 90.3 kg (199 lb) SpO2 100% BMI 28.55 kg/m?? ECOG 0-1 APPEARANCE: Alert and oriented in no acute distress EYES: nonicteric sclera pink conjunctiva ORAL CAVITY: No erythema or exudates NECK: Neck supple, no significant adenopathy, HEART: normal S1 and S2 LUNG: clear to auscultation bilaterally LYMPH NODES: No palpable superficial adenopathy ABDOMEN: soft, nontender and no organomegaly appreciated EXTREMITIES: No edema erythema or tenderness LABS: WBC 4.1, hemoglobin 12.9 g, hematocrit 40.3% and platelet count 159 TIBC 492, iron saturation 10% and ferritin 15 Normal B12 folate Serum immunofixation showed no monoclonal gammopathy IMPRESSION: SNOMED CT(R) 1. Mild anemia ANEMIA After reviewing history physical laboratory data I do not think patient has any significant hematological disorder, patient has very mild iron deficiency that may be because of very mild anemia, thatcould be due to patient's blood thinner but I do not think he need to stop blood thinner or have any extensive workup, I gave him reassurance but I told him to follow-up on his bowel movement, if he s ee any black stool blood in stool he should report to PCP. From hematological standpoint he does not need any further intervention PLAN: Return to office as needed Lora Krause MD documented in this encounter Plan of Treatment Upcoming Encounters Date Type Department Care Team (Late st Contact Info) Description 05/13/2025 8:45 AM EDT Office Visit [facility] Hematology Oncology [address] [place] [phone] Lora Krause MD [address] [place] [address] 08/03/2025 7:00 AM EST Ancillary Procedure [facility] [address] [place] [phone] documented as of this encounter Procedures Procedure Name Priority Date/Time Associated Diagnosis Comments ..MISCELLANEOUS REFERENCE LAB TEST 05/19/2024 ..MISCELLANEOUS REFERENCE LAB TEST 05/19/2024 documented in this encounter Results * Miscellaneous reference lab test (05/19/2024) us Provider Onbase MD LAB BLOOD ORDERABLES Final Re sult * Miscellaneous reference lab test (05/19/2024) us Provider Onbase MD LAB BLOOD ORDERABLES Final Re sult documented in this encounter Visit Diagnoses Not on filedocumented in this encounter Care Teams Administrative Assistant Receptionist Relationship Specialty Start Date End Date Carrie Nelson NP [address] [place] [phone] PCP - General 05/07/24 documented as of this encounter
--- OUTSIDE RECORDS SUMMARY | 2025-05-06 07:46 | XMS_ITS | Clinical Summary ---
Author Organization [address] [place] [address] Address [address] [place] [address] Phone Care Team Providers Care Wireless Telegrapher Name Role Phone TomyilvanjudyCarrie CHASER TAR Primary Care Provider Allergies Active Allergy Reactions Criticality Noted Date Comments Atorvastatin 08/06/2021 Bacitracin 08/06/2021 Morphine Sulfate 08/09/2021 In medication needs to be administered slowly or pt has vomiting and elevated BP Medications allopurinoL (ZYLOPRIM) 300 mg tablet Take 300 mg by mouth daily. Active doxazosin (CARDURA) 8 mg tablet Take 1 Tablet by mouth at bedtime. Active LORazepam (ATIVAN) 1 mg tablet Take [...] time each day. 30 each 11 5 08/18/19 26 Active Additional Information Patient not taking.Reported on 04/23/2025 losartan (Cozaar) 50 mg tablet Take 1 tablet (50 mg total) by mouth 2 (two) times a day. 180 each 2 5 Active amLODIPine (Norvasc) 5 mg tablet Take 1 tablet (5 mg total) by mouth 2 (two) times a day. 180 each 2 5 Active metoprolol succinate (TOPROL-XL) 25 mg 24 hr tablet TAKE 1 TABLET BY MOUTH EVERY DAY 90 tablet 3 5 Active doxycycline (VIBRAMYCIN) 50 mg capsule Take 50 mg by mouth every 48 hours. 04/23/20 25 Discontin ued(Thera py completed ) clopidogreL (PLAVIX) 75 mg tablet Take 1 tablet (75 mg total) by mouth 1 (one) time each day. 30 each 11 5 04/23/20 25 Discontin ued(Thera py completed ) Active Problems Problem Noted Date Diagnosed Date HERRERA (dyspnea on exertion) 08/18/2024 Presence of Watchman left atrial appendage closu re device 08/18/2024 Overview (08/18/2024): August 13, 2024 #27 mm watchman LAAO device placed Mixed hyperlipidemia 06/25/2024 Abnormal stress ECG with treadmill 08/08/2023 Coronary artery disease due to lipid rich plaque 08/08/2023 Palpitations 08/08/2023 SOB (shortness of breath) 04/09/2023 Diastolic heart failure with preserved ejection fraction ([facility] V24, [facility] V28) 12/30/2021 Pulmonary hypertension ([facility] V24, [facility] V28 ) 12/30/2021 Other fatigue 11/02/2021 Snoring 11/02/2021 Aneurysm of abdominal aorta ([facility] V24) 2021 Chronic kidney disease, stage 1, normal or incre ased GFR 08/22/2021 Diabetes mellitus with renal complications ([facility] V24, [facility] V28) 08/22/2021 DMII (diabetes mellitus, type 2) ([facility] V24, [facility] V28) 08/22/2021 Chest pain 08/09/2021 Overview (05/09/2024): Last Assessment & Plan: Patient admitted to [facility] [place] with chest pain ruled out for an NM. No dynamic EKG changes other than atrial fibrillation. Patient states he is having some exertional dyspnea but no further discomfort in the chest which was described as a bandlike nature. Respecters for coronary disease are family history of tobacco abuse hyperlipidemia and hypertension. Patient be scheduled for stress echocardiogram PAF (paroxysmal atrial fibri llation) ([facility] V24, [facility] V28) 08/06/2021 Overview (05/09/2024): Last Assessment & [...] Encounters Date Type Department Care Team Description 04/23/2025 9:40 AM EDT Office Visit [facility] [address] [place] [address] Alice Santizo PA PAF (paroxysmal atrial fibrillation) ([facility] V24, [facility] V28) (Primary Dx); Mixed hyperlipidemia; Coronary artery disease due to lipid rich plaque; HERRERA (dyspnea on exertion); Primary hypertension; Palpitations; Presence of Watchman left atrial appendage closure device from Last 3 Months Immunizations Immunization Administration Dates Next Due Codefast SARS-CoV-2 COVID-19, mRNA, LNP-S, preservative free 04/15/2021,10/02/2020,09/08/2020 Surgical History Surgery Date Site/Laterality Comments OTHER SURGICAL HISTORY PROCEDURE: HISTORY OTHER; COMMENT: Enterolysis, laparoscopy, freeing of intestinal adhesion OTHER SURGICAL HISTORY PROCEDURE: AK RPR THORACOABDOMINAL AORTIC ANEURYS W/WO BYPASS; COMMENT: Reapir of AAA repair for dilation or occlusion OTHER SURGICAL HISTORY PROCEDURE: AK BYP OTH/THN VEIN FEMORAL-FEMORAL EYE SURGERY PROCEDURE: HISTORICAL EYE SURGERY MULTIPLE TOOTH EXTRACTIONS PROCEDURE: HISTORICAL DENTAL EXTRACTION; COMMENT: H/O Dental Srugery OTHER SURGICAL HISTORY 03/25/2011 PROCEDURE: LAPAROSCOPY,ENTEROLYSIS OTHER SURGICAL HISTORY PROCEDURE:AAA Stent and Repair Medical History Medical History Date Comments Aneurysm of abdominal aorta ([facility] V24) DX:Aneurysm of abdominal aorta ([facility]) Anxiety DX:Anxiety DMII (diabetes mellitus, typ e 2) ([facility] V24, [facility] V28) DX:DMII (diabetes mellitus, type 2) ([facility]) Renal disease DX:Renal disease Gout DX:Gout Hypogonadism in male DX:Hypogona dism in male Impotence of organic origin DX:I mpotence of organic origin Microalbuminuria DX:Microalbumin uria Intestinal obstruction ([facility] V24, [facility] V28) DX:Intestinal obstruction ([facility]) Diabetes mellitus with renal complications ([facility] V24, [facility] V28) DX:Diabetes mellitus with r enal complications ([facility]) Chronic kidney disease, stag e 1, normal or increased GFR DX:Chronic kidney disease, s tage 1, normal or increased GFR Kidney disease, chronic, sta ge I (normal EGFR) DX:Kidney disease, chronic, stage I (normal EGFR) Heart palpitations DX:Heart palp itations Diabetes mellitus ([facility] V 24, [facility] V28) DX:Diabetes mellitus ([facility]) Hypertension DX:Hypertension Emphysema lung ([facility] V24, [facility] V28) DX:Emphysema lung ([facility]) Seborrhea DX:Seborrhea Anemia DX:Anemia Family History Medical [...] Sign Reading Time Taken Comments Blood Pressure 120/80 04/23/2025 9:17 AM EDT Pulse 72 04/23/2025 9:17 AM EDT Temperature 36.5 C (97.7 F) 10/17/2024 1:06 PM EDT Respiratory Rate 17 10/17/2024 2:00 PM EDT Oxygen Saturation 98% 04/23/2025 9:17 AM EDT Inhaled Oxygen Concentration - - Weight 92.2 kg (203 lb 3.2 oz) 04/23/2025 9:17 A M EDT Height 177.8 cm (5' 10 ) 04/23/2025 9:17 AM EDT Body Mass Index 29.16 04/23/2025 9:17 AM EDT Plan of Treatment Upcoming Encounters Date Type Department Care Team (Late st Contact Info) Description 05/13/2025 8:45 AM EDT Office Visit [facility] Hematology Oncology [address] [place] [phone] Lora Krause MD [address] [place] [address] 08/03/2025 7:00 AM EST Ancillary Procedure [facility] [address] [phone] Health Maintenance Due Date Last Done Comments Diabetes: Annual Foot Exam 1960 Diabetes: Annual Retina Eye Exam 1960 Falls Risk Assessment 2022 Hepatitis C Screening 2022 Social Influencers of Health Screening 2022 Diabetes: Annual Urine Albumin-Creatinine Ratio (uACR) 07/06/2022 Diabetes: Blood Sugar Control Test (HGBA1C) 07/06/2022 Depression Screening 07/23/2024 Diabetes: Annual GFR (Glomerular Filtration Rate) 10/10/2025 10/10/2024, 08/18/2024 Hypertension/CHF/CAD Annual BMP Blood Test 10/10/2025 10/10/2024, 08/18/2024 Cholesterol Screening (Lipid Panel) 12/20/2028 12/21/2023, 12/21/2023 DTaP,Tdap,and Td Vaccines (2 - Td or Tdap) 03/04/2030 03/04/2020 Pneumococcal Vaccine: 50+ Years Completed 12/22/2015, 10/14/2014, 03/28/2011 Zoster Vaccines Completed 07/05/2020, 03/2020, 09/14/2014 RSV Immunization Adult Patients Completed 05/08/2023 COVID-19 Vaccine Completed 04/03/2025, , 05/08/2023, Additional history exists Influenza Vaccine Completed 04/03/2025, , 04/09/2023, Additional history exists HIB Vaccines Aged Out [...] Procedure Name Priority Date/Time Associated Diagnosis Comments ECG 12-LEAD Routine 04/23/2025 10:09 AM EDT PAF (paroxysmal atrial fibrillation) ([facility] V24, [facility] V28) BASIC METABOLIC PANEL Routine 10/10/2024 11:06 AM EDT PAF (paroxysmal atrial fibrillation) ([facility] V24, [facility] V28) LIPID PANEL Routine 12/21/2023 from Last 3 Months or Most Recently Relevant to Health Maintenance Results * ECG 12 lead (04/23/2025 10:09 AM EDT) Ventricular Rate ECG 72 BPM GEMUSE Atrial Rate 72 BPM GEMUSE QRS Duration 76 ms GEMUSE Q-T Interval 378 ms GEMUSE QTc 413 ms GEMUSE R [place] -6 degrees GEMUSE T [place] 66 degrees GEMUSE ECG Interpretation Sinus rhythm with 1st degree A-V block Otherwise normal ECG When compared with ECG of 16-DEC-2021 15:01, Minimal criteria for Inferior infarct are no longer Present Nonspecific T wave abnormality no longer evident in Anterolateral leads QT has shortened GEMUSE 04/23/2025 9:18 AM EDT us Alice COPELAND ECG ORDERABLES Final Result GEMUSE * (ABNORMAL) Basic metabolic panel (10/10/2024 11:06 AM EDT) Pathologist [facility] Sodium 135 133 - 145 mmol/L LAB CHEMISTRY METHOD 10/10/2024 2:35 PM EDT [facility] Potassium 4.5 3.5 - 5.5 mmol/L LAB CHEMISTRY METHOD 10/10/2024 2:35 PM EDT [facility] Chloride 103 96 - 110 mmol/L LAB CHEMISTRY METHOD 10/10/2024 2:35 PM T [facility] CO2 25 21 - 32 mmol/L LAB CHEMISTRY METHOD 10/10/2024 2:35 PM EDT [facility] Anion Gap 7 3 - 11 LAB CHEMISTRY METHOD 10/10/2024 2:35 PM T [facility] Glucose 125(H) 70 - 100 mg/dL LAB CHEMISTRY METHOD 10/10/2024 2:35 PM EDT [facility] BUN 17 5 - 25 mg/dL LAB CHEMISTRY METHOD 10/10/2024 2:35 PM EDT [facility] Creatinine 0.92 0.70 - 1.30 mg/dL LAB CHEMISTRY METHOD 10/10/2024 2:35 PM EDT [facility] eGFR 86 >=60 mL/min/1. 73m2 LAB CHEMISTRY METHOD 10/10/2024 2:35 PM EDT [facility] Comment:Calculation based on the Chronic Kidney Disease Epidemiology Collaboration (CKD-EPI) equation refit without adjustment for race. BUN/Creatinine Ratio 18.5 LAB CHEMISTRY METHOD 10/10/2024 2:35 PM EDT [facility] Calcium 9.1 8.5 - 10.5 mg/dL LAB CHEMISTRY METHOD 10/10/2024 2:35 PM EDT [facility] Blood Venous blood specimen / Unknown Venipuncture / Unknown 10/10/2024 11:06 AM EDT 10/10/2024 12:36 PM EDT Tsahia Cerna MD LAB BLOOD ORDERABLES Final Result [facility] [address] [place] [address], [place] [phone] * Lipid panel (12/21/2023) LDL/HDL Ratio 3 0 - 4 Triglycerides 123 0 - 150 mg/dL Cholesterol 131 0 - 200 mg/dL HDL 58 >=40 mg/dL LDL Cholesterol 58 0 - 100 mg/dL Blood Venous blood specimen / Unknown Historical Provider LAB BLOOD ORDERABLES Edita l Result from Last 3 Months or Most Recently Relevant to Health Maintenance Insurance [employer] Care Teams Wireless Telegrapher Relationship Specialty Start Date End Date Carrie Nelson NP [address] [place] [address] PCP - General 05/07/24
--- OUTSIDE RECORDS SUMMARY | 2025-05-06 07:46 | XMS_ITS | Clinical Summary ---
Author Organization [facility] Address [address] [place] [address] Care Team Providers Care Pm Head Cook Name Role Phone Carrie Nelson SUPER[employer] Primary Care Provider Allergies Active Allergy Reactions [...] 78 05/19/2024 9:40 AM EDT Temperature 36.7 C (98 F) 05/19/2024 9:40 AM EDT Respiratory Rate - [...] - Tdap) 1967 Fall Risk Assessment 2013 Influenza Vaccine (#1) 2025 4, 04/09/2023, 05/03/2022, Additional history exists Pneumococcal Vaccine Completed 12/22/2015, 10/14/2014, 03/28/2011 Shingrix-Zoster Vaccine Completed 07/05/20 20, 03/31/2020, 09/14/2014 RSV Adult > 60+ Yrs or Completed 05/08/2023 COVID-19 Vaccine Completed 04/07/2024, , 04/15/2021, Additional history exists Hepatitis B Vaccines Aged Out No long er eligible based on patient's age to complete this topic RSV Ped < 20 months Aged Out No longe r eligible based on patient's age to complete this topic Care Teams Pm Head Cook Relationship Specialty Start Date End Date Carrie Nelson NP [address] [facility] [place] [address] PCP - General Family Medicine 05/07/24
--- NOTE | 2025-05-06 08:00 | MHC.OFFVIS ---
Intake Visit Reasons: 6m/PSA Intake Note: Patient presents for follow up visit on: enlarged Prostate Urology Medications: Finasteride, Allopurinol,Doxazosin Blood Thinner: none Turntable Man Required: No Accompanied by: Self / Same As Patient Allergies topical antibiotics Allergy (Uncoded 05/06/25 08:40) Rash Medication List - Last Reconciled 05/06/25 by RONEL PeñalozaP- allopurinol 300 mg PO DAILY amlodipine 5 mg PO BID doxazosin 8 mg PO DAILY finasteride 5 mg PO DAILY 90 days losartan 50 mg PO BID metformin ER 500 mg PO BID metoprolol succinate ER 25 mg PO DAILY pravastatin 20 mg PO DAILY HPI Comments Details: Melquiades Anand is a very pleasant 74-year-old male patient of Dr. Nelson. He has a past medical history of aortic aneurysm status post repair, hypertension, and diabetes. He presents to the office today for follow-up of his enlarged prostate. In discussion with the patient today he reports to be doing and feeling well. He reports compliance with finasteride every other day as prescribed. He reports he is due to follow-up with oncology at [facility] due to his ongoing iron deficiency anemia. He denies having had any bothersome urinary issues or concerns since his last office visit here. In office urinalysis results reviewed with the patient today. Recent PSA results reviewed with the patient today as noted and trended below. Previous workup has included a retroperitoneal ultrasound 01/13 noting bilateral kidneys with no calculi or hydronephrosis. Right kidney with 3 benign Bosniak class 1 renal cyst, the largest measuring 8.1 cm, which requires no additional follow-up per radiology report. Left kidney with 2 benign Bosniak class 1 cyst measuring 1.2 cm. There is a Bosniak class 2 complex cyst with a single septation measuring 3.2 cm. Both of these requiring no additional imaging or follow-up per radiology report. The bladder is well distended and normal. Bladder jets are demonstrated. Pre void bladder volume is approximately 566 mL. Postvoid bladder volume is approximately 25 mL. Moderate to marked prostate enlargement with a volume of 108 mL. He discusses his Watchman procedure last year with Dr. Cerna. He otherwise offers no other issues or concerns at this time. PSAs are as follows: PSA 10/13 1.7, 04/15 1.0, 10/14 1.2, 04/16 1.1 [facility] Medical History AAA (abdominal aortic aneurysm) Type 2 diabetes mellitus Hypertension Surgical History History of cardiac radiofrequency ablation History of AAA (abdominal aortic aneurysm) repair Review of Systems Const Reports no additional complaints Eyes Reports no additional complaints ENT Reports no additional complaints Card Reports as per HPI Resp Reports no additional complaints GI Reports no additional complaints Reports as per HPI Musc Reports no additional complaints Neuro Reports no additional complaints Psych Reports no additional complaints Endo Reports as per HPI Kt/Lymph Reports no additional complaints Aller/Immun Reports no additional complaints Physical Exam Const General: cooperative, healthy appearing, comfortable, no acute distress, well developed, alert and awake Nutritional Appearance: overweight Orientation/consciousness: patient oriented x3 Limitations: no limitations HEENT Head: Yes normal to inspection, Yes normocephalic and Yes atraumatic Ears: hearing grossly normal bilaterally Eyes General: appearance normal, both eyes and all related structures Neck Neck: Yes normal visual inspection and Yes trachea midline Chest Chest palpation & inspection: normal inspection of the chest Resp Effort & Inspection: normal respiratory effort and able to speak in complete sentences Cardio Rate: regular rate GI Inspection: Yes normal to inspection General: Yes no CVA tenderness Back/Spine/Pelvis Back: no CVA tenderness Skin General skin exam: no rashes or lesions noted Neuro General: patient oriented x3 Extrem General: Yes normal to inspection Psych Appearance: grossly normal and well kempt Mental Status: mental status grossly normal Speech and movement: Normal speech and movement present and Clear speech present Affect: normal affect Attitude: cooperative Thought process: Normal thought process present Thought content: Normal thought content present Insight: Fair insight present (Psych) Judgement: Fair judgement present (Psych) Results AMB Urinalysis, Automated UA Leukoctes 0 Akhli/uL Last Edit by RUPERTO Hassan on 05/06/25 08:04 UA Nitrite Negative Last Edit by RUPERTO Hassan on 05/06/25 08:04 UA Urobilinogen 0.2 mg/dL Last Edit by RUPERTO Hassan on 05/06/25 08:04 UA Protein 15 mg/dL Last Edit by RUPERTO Hassan on 05/06/25 08:04 UA pH 6.0 Last Edit by Lata Colon, CCMA on 05/06/25 08:04 UA Blood 0 Yadiel/uL Last Edit [facility] on 05/06/25 08:04 UA Specific [place] 1.015 Last Edit by Lata Colon, [facility] on 05/06/25 08:04 UA Ketone Negative Last Edit by Lata Colon, [facility] on 05/06/25 08:04 UA Bilirubin 0 mg/dL Last Edit by Lata Colon, [facility] on 05/06/25 08:04 UA Glucose 0 mg/dL Last Edit by Lata Colon, [facility] on 05/06/25 08:04 Results Reviewed Results Reviewed: Laboratory Last Values Urine pH (Auto) 6.0 05/06/25 08:03 Specific [place] (Auto) 1.015 05/06/25 08:03 Urine Protein (Auto) 15 mg/dL 05/06/25 08:03 Glucose (UA)(Auto) 0 mg/dL 05/06/25 08:03 Urine Ketones (Auto) Negative 05/06/25 08:03 Urine Blood (Auto) 0 Yadiel/uL 05/06/25 08:03 Urine Nitrite (Auto) Negative 05/06/25 08:03 Urine Bilirubin (Auto) 0 mg/dL 05/06/25 08:03 Urine Urobilinogen (Auto) 0.2 mg/dL 05/06/25 08:03 Leukocyte Esterase (Auto) 0 Akhil/uL 05/06/25 08:03 Assessment & Plan Assessment & Plan (1) Enlarged prostate: Code(s): N40.0 - Benign prostatic hyperplasia without lower urinary tract symptoms Category: Medical (2) Weak urinary stream: Code(s): R39.12 - Poor urinary stream Category: Medical (3) Erectile dysfunction associated with type 2 diabetes mellitus: Code(s): E11.69 - Type 2 diabetes mellitus with other specified complication; N52.1 - Erectile dysfunction due to diseases classified elsewhere Category: Medical Plan In office urinalysis results reviewed with the patient today; as noted above. Recent PSA results reviewed with the patient today; as noted above. Patient currently denies any bothersome urinary issues or concerns. He reports be happy with current voiding parameters. Continue finasteride as prescribed; every other day. Will continue with surveillance monitoring. Follow-up in 6 months with [facility]; or sooner with any issues, concerns, and or questions. Patient Instructions: The patient had an opportunity to ask questions regarding the treatment plan. All questions were answered. Physical exam, labs, and imaging were discussed and reviewed in detail. As well as risks, benefits, and discussion of treatment choices. No major barriers to understanding were identified. The patient expressed understanding and agreement with the above treatment plan. The patient was made aware they should contact our office by phone for worsening of their current condition, the appearance of new symptoms, or with any questions or concerns. Compliance is encouraged with any medications and follow up testing that is ordered. It is a privilege to be allowed the opportunity to participate in? your urological care.? Again, if you have any questions or concerns If you have any questions or concerns please do not hesitate to contact me. The office is [phone]. This note is constructed using voice recognition software. While every effort has been made to ensure accuracy speech and language specialist errors may have been included. Yours sincerely, MATTIE Peñaloza Coding Level of Care Code Est Pt Level 3 (05173) Complex EM visit Add On G2211 Diagnoses Enlarged prostate N40.0 Weak urinary stream R39.12 Erectile dysfunction associated with type 2 diabetes mellitus E11.69; N52.1
== END 2025-05-06 08:39 | disposition home or self-care (01) ==
LOC: HO.HUSH 07:42
PROVIDERS: PCP Nurse Practitioner Family; Visit Provider Nurse Practitioner Family
DX: N40.0 Benign prostatic hyperplasia without lower urinary tract symptoms (principal); R39.12 Poor urinary stream; E11.69 Type 2 diabetes mellitus with other specified complication; N52.1 Erectile dysfunction due to diseases classified elsewhere
CPT/HCPCS: 99213